=== PATIENT | male | born 1985 | race Caucasian/White ===

== ENCOUNTER 2017-12-05 13:26 | Inpatient (IN) | payer MEDICAID, OTHER ==
[2017-12-05 14:22] LABS: Amphetamine Screen,Urine Not Detected (NotDetected); Barbiturate Screen,Urine Not Detected (NotDetected); Benzodiazepines Screen,Urine Not Detected (NotDetected); Cocaine Screen,Urine Not Detected (NotDetected); Methadone Screen, Urine Not Detected (NotDetected); Opiate Screen,Urine Not Detected (NotDetected); Oxycodone Screen, Urine Not Detected (NotDetected); Phencyclidine Screen,Urine Not Detected (NotDetected); Tricyclic Antidepressant,Urine Not Detected (NotDetected); Urn Cannabinoid Scrn Not Detected (NotDetected)
--- NOTE | 2017-12-05 15:28 | ED ---
General Adult HPI - General Chief complaint: Psychiatric Symptoms Stated complaint: suicidal Time Seen by Provider: 12/05/17 13:30 Source: patient, RN notes reviewed, old records reviewed Mode of arrival: EMS Limitations: no limitations - History of Present Illness Initial comments: This is a 30-year-old male the ER for psychiatric evaluation. Patient with severe depression, wanting to jump off bridge. Patient denies drugs or alcohol today. - Related Data Home Medications Medication Instructions Recorded Confirmed ARIPiprazole [Abilify] 10 mg PO HS 12/05/17 12/05/17 Beclomethasone Dipropionate [Qvar 2 puff INHALATION RT-BID 12/05/17 12/05/17 40 mcg] Cholecalciferol [Vitamin D3] 5,000 unit PO DAILY 12/05/17 12/05/17 Cyanocobalamin (Vitamin B-12) 1,000 mcg PO DAILY 12/05/17 12/05/17 [Vitamin B-12] Cyanocobalamin [Vitamin B-12 1,000 mcg SQ ONCE 12/05/17 12/05/17 Injection] Ipratropium/Albuterol Sulfate 1 puff INHALATION RT-QID 12/05/17 12/05/17 [Combivent Respimat Inhaler] Lisinopril [Zestril] 10 mg PO DAILY 12/05/17 12/05/17 Metoprolol Succinate (ER) [Toprol 25 mg PO DAILY 12/05/17 12/05/17 Xl] Simvastatin [Zocor] 20 mg PO HS 12/05/17 12/05/17 Vortioxetine Hydrobromide 20 mg PO HS 12/05/17 12/05/17 [Trintellix] amLODIPine [Norvasc] 10 mg PO DAILY 12/05/17 12/05/17 lamoTRIgine [LaMICtal] 200 mg PO DAILY 12/05/17 12/05/17 Allergies Allergy/AdvReac Type Severity Reaction Status Date / Time lactose AdvReac Nausea & Verified 12/05/17 14:15 Vomiting Review of Systems ROS Statement: Those systems with pertinent positive or pertinent negative responses have been documented in the HPI. ROS Other: All systems not noted in ROS Statement are negative. Past Medical History Past Medical History: COPD, Hyperlipidemia, Hypertension Additional Past Medical History / Comment(s): alcohol syndrome. History of Any Multi-Drug Resistant Organisms: None Reported Additional Past Surgical History / Comment(s): RIGHT KNEE ACL, PCL. Past Anesthesia/Blood Transfusion Reactions: No Reported Reaction Past Psychological History: ADD/ADHD, Anxiety, Depression Smoking Status: Never smoker Past Alcohol Use History: Heavy Past Drug Use History: Heroin, Marijuana - Past Family History Mother Family Medical History: Unable to Obtain, Myocardial Infarction ([place]), Seizure Disorder Additional Family Medical History / Comment(s): Pt. reports she at the age of 35 years of age. Father Family Medical History: Unable to Obtain Additional Family Medical History / Comment(s): Pt. states that his father is also and he is unsure of hx. Pt. uncertain of the age of his father when he . General Exam Limitations: no limitations General appearance: alert, in no apparent distress Head exam: Present: atraumatic, normocephalic, normal inspection Eye exam: Present: normal appearance, PERRL, EOMI. Absent: scleral icterus, conjunctival injection, periorbital swelling ENT exam: Present: normal exam, mucous membranes moist Neck exam: Present: normal inspection. Absent: tenderness, meningismus, lymphadenopathy Respiratory exam: Present: normal lung sounds bilaterally. Absent: respiratory distress, wheezes, rales, rhonchi, stridor Cardiovascular Exam: Present: regular rate, normal rhythm, normal heart sounds. Absent: systolic murmur, diastolic murmur, rubs, gallop, clicks GI/Abdominal exam: Present: soft, normal bowel sounds. Absent: distended, tenderness, guarding, rebound, rigid Extremities exam: Present: normal inspection, full ROM, normal capillary refill. Absent: tenderness, pedal edema, joint swelling, calf tenderness Back exam: Present: normal inspection Neurological exam: Present: alert, oriented X3, CN II-XII intact Psychiatric exam: Present: normal affect, normal mood Skin exam: Present: warm, dry, intact, normal color. Absent: rash Course Vital Signs 12/05/17 12/05/17 13:31 16:37 Temperature 98.3 F 97.7 F Pulse Rate 88 93 Respiratory 20 20 Rate Blood Pressure 155/65 160/63 O2 Sat by Pulse 88 L 95 Oximetry - Reevaluation(s) Reevaluation #1: 12/05/17 15:28 Medically clear for psychiatric evaluation Medical Decision Making - Medical Decision Making 32 male seen evaluated with psychiatry, patient will be admitted for psychiatric evaluation and treatment - Lab Data Lab Results 12/05/17 Range/Units 13:40 Urine Opiates Screen Not Detected (NotDetected) Ur Oxycodone Screen Not Detected (NotDetected) Urine Methadone Screen Not Detected (NotDetected) Ur Propoxyphene Screen Not Detected (NotDetected) Ur Barbiturates Screen Not Detected (NotDetected) U Tricyclic Antidepress Not Detected (NotDetected) Ur Phencyclidine Scrn Not Detected (NotDetected) Ur Amphetamines Screen Not Detected (NotDetected) U Methamphetamines Scrn Not Detected (NotDetected) U Benzodiazepines Scrn Not Detected (NotDetected) Urine Cocaine Screen Not Detected (NotDetected) U Marijuana (THC) Screen Not Detected (NotDetected) Disposition Clinical Impression: Acute anxiety, Suicidal ideation, Depression, Attempted suicide Disposition: TRANSFER TO PSYCH HOSP/UNIT Condition: Fair Referrals: None,Stated [Primary Care Provider] - 1-2 days
[2017-12-05] MEDS ORDERED: MAGNESIUM HYDROXIDE 2,400 MG/10 ML CUP PO PRN (22:30)
[2017-12-05] MEDS ORDERED: MAG HYDROX/AL HYDROX/SIMETH 30 ML CUP PO PRN (22:30)
[2017-12-05] MEDS ORDERED: ACETAMINOPHEN TAB 325 MG TAB PO PRN (22:30)
[2017-12-06 01:46] VITALS: BMI 56.4
[2017-12-06] MEDS ORDERED: LISINOPRIL 10 MG TAB PO SCH (09:00)
[2017-12-06] MEDS ORDERED: amLODIPine 10 MG TAB PO SCH (09:00)
[2017-12-06] MEDS: IPRATROPIUM-ALBUTEROL 3 ML NEB INHALATION SCH ×4 (09:11→21:02)
[2017-12-06 09:43] LABS: Basophils # (A) 0.1 k/uL (0-0.2); Basophils % (A) 1 %; Eosinophils # (A) 0.2 k/uL (0-0.7); Eosinophils % (A) 1 %; HCT 45.9 % (39.0-53.0); HGB 15.4 gm/dL (13.0-17.5); Lymphocytes # (A) 2.4 k/uL (1.0-4.8); Lymphocytes % (A) 18 %; MCH 30.6 pg (25.0-35.0); MCHC 33.5 g/dL (31.0-37.0); MCV 91.2 fL (80.0-100.0); Mean Platelet Volume 7.1; Monocytes # (A) 0.8 k/uL (0-1.0); Monocytes % (A) 6 %; Neutrophils % (A) 73 %; Platelet Count 334 k/uL (150-450); RBC 5.03 m/uL (4.30-5.90); RDW 13.1 % (11.5-15.5); WBC 13.6 k/uL (3.8-10.6)
[2017-12-06] MEDS: METOPROLOL SUCCINATE (ER) 25 MG TAB.ER.24H PO SCH (09:52)
[2017-12-06] MEDS: lamoTRIgine 100 MG TAB PO SCH (09:53)
[2017-12-06 10:04] LABS: ALT 31 U/L (21-72); AST 28 U/L (17-59); Albumin 3.8 g/dL (3.5-5.0); Alkaline Phosphatase 104 U/L (38-126); Anion Gap 13 mmol/L; Blood Urea Nitrogen 12 mg/dL (9-20); Calcium 9.5 mg/dL (8.4-10.2); Carbon Dioxide 26 mmol/L (22-30); Chloride 102 mmol/L (98-107); Cholesterol 213 mg/dL (<200); Glucose 107 mg/dL (74-99); HDL Cholesterol 43 mg/dL (40-60); LDL Cholesterol,Calculated 128 mg/dL (0-99); Potassium 4.4 mmol/L (3.5-5.1); Sodium 141 mmol/L (137-145); Total Bilirubin 0.5 mg/dL (0.2-1.3); Total Protein 6.8 g/dL (6.3-8.2); Triglycerides 212 mg/dL (<150)
[2017-12-06 13:10] LABS: Appearance,Urine Clear (Clear); Bilirubin,Urine Negative (Negative); Blood,Urine Negative (Negative); Color,Urine Light Yellow; Glucose,Urine (UA) Negative (Negative); Ketones,Urine Negative (Negative); Leukocyte Esterase,Urine Negative (Negative); Nitrite,Urine Negative (Negative); PH, Urine 5.5 (5.0-8.0); Protein,Urine Negative (Negative); Urobilinogen,Urine <2.0 mg/dL (<2.0)
[2017-12-06] MEDS: CYANOCOBALAMIN 500 MCG TAB PO SCH (13:23)
[2017-12-06] MEDS: CHOLECALCIFEROL 1,000 UNIT TAB PO SCH (13:24)
[2017-12-06] MEDS: NYSTATIN 100,000 UNIT/GM POWD 15 GM TOPICAL SCH ×2 (13:25→21:33)
[2017-12-06] MEDS ORDERED: ALBUTEROL NEBULIZED 2.5 MG/3 ML INHALATION PRN (14:47)
--- NOTE | 2017-12-06 15:04 | P.HPMEDMHU ---
History of Present Illness H&P Date: 12/06/17 Chief Complaint: COPD Patient is a 32-year-old male with a history of morbid obesity, hypertension, COPD, dyslipidemia, and alcohol syndrome who presented to the emergency department with complaints of suicidal ideation. In the ER he underwent evaluation. He was admitted to the mental health unit. Laboratory analysis showed a slightly elevated white blood cell count. Patient seen and examined. He states that he had nasal congestion about 2 weeks ago but this has gotten better. He also complains of pain in his knee and back he states they're secondary to prior surgery and a pinched nerve. He is asking for pain medications. He also admits to having a rash in his groin that started a few days ago. He denies any chest pain, shortness of breath, nausea, vomiting, diarrhea, or constipation. He denies depression and suicidal ideation to me but states he is here because he started hearing voices and was listening to them. He states that he became homeless 2 days ago. He had not been taking his medications consistently prior to this. Review of Systems Pertinent positives and negatives as per HPI remainder 12 point review of systems is negative. Past Medical History Past Medical History: COPD, Hyperlipidemia, Hypertension Additional Past Medical History / Comment(s): alcohol syndrome. Neuropathy. "Pinched nerve in back" History of Any Multi-Drug Resistant Organisms: None Reported Additional Past Surgical History / Comment(s): RIGHT KNEE ACL, PCL. Surgery for fracture right knee Past Anesthesia/Blood Transfusion Reactions: No Reported Reaction Smoking Status: Never smoker - Past Family History Mother Family Medical History: Myocardial Infarction ([place]), Seizure Disorder Additional Family Medical History / Comment(s): Pt. reports she at the age of 35 years of age. Father Additional Family Medical History / Comment(s): Pt. states that his father is also and he is unsure of hx. Pt. uncertain of the age of his father when he . Medications and Allergies Home Medications Medication Instructions Recorded Confirmed Type ARIPiprazole [Abilify] 10 mg PO HS 12/05/17 12/06/17 History Beclomethasone Dipropionate [Qvar 2 puff INHALATION RT-BID 12/05/17 12/06/17 History 40 mcg] Cholecalciferol [Vitamin D3] 5,000 unit PO DAILY 12/05/17 12/06/17 History Cyanocobalamin (Vitamin B-12) 1,000 mcg PO DAILY 12/05/17 12/06/17 History [Vitamin B-12] Cyanocobalamin [Vitamin B-12 1,000 mcg SQ ONCE 12/05/17 12/06/17 History Injection] Ipratropium/Albuterol Sulfate 1 puff INHALATION RT-QID 12/05/17 12/06/17 History [Combivent Respimat Inhaler] Lisinopril [Zestril] 10 mg PO DAILY 12/05/17 12/06/17 History Metoprolol Succinate (ER) [Toprol 25 mg PO DAILY 12/05/17 12/06/17 History Xl] Simvastatin [Zocor] 20 mg PO HS 12/05/17 12/06/17 History Vortioxetine Hydrobromide 20 mg PO HS 12/05/17 12/06/17 History [Trintellix] amLODIPine [Norvasc] 10 mg PO DAILY 12/05/17 12/06/17 History lamoTRIgine [LaMICtal] 200 mg PO DAILY 12/05/17 12/06/17 History Allergies Allergy/AdvReac Type Severity Reaction Status Date / Time lactose AdvReac Nausea & Verified 12/06/17 01:21 Vomiting Physical Exam Osteopathic Statement: *. No significant issues noted on an osteopathic structural exam other than those noted in the History and Physical/Consult. Vitals: Vital Signs Temp Pulse Pulse Resp BP BP Pulse Ox 12/06/17 07:25 97.7 F 88 16 146/63 12/06/17 01:38 98.0 F 99 17 137/92 12/05/17 20:15 97.6 F 86 20 166/72 95 12/05/17 16:37 97.7 F 93 20 160/63 95 12/05/17 13:31 98.3 F 88 20 155/65 88 L Intake and Output 12/05/17 12/06/17 12/06/17 22:59 06:59 14:59 Other: Weight 153.8 kg General: non toxic, no distress, appears at stated age, obese Derm: Erythema with excoriation, small papules, no scale or crust in the right groin fold no unusual ecchymoses, warm, dry Head: atraumatic, normocephalic, symmetric Eyes: EOMI, no lid lag, anicteric sclera, pupils equal round reactive to light ENT: Nose and ears atraumatic, no thrush, no pharyngeal erythema Neck: No thyromegaly, no cervical lymphadenopathy, trachea midline, supple Mouth: no lip lesion, mucus membranes moist Cardiovascular: S1S2 reg, no murmur, positive posterior tibial pulse bilateral, no edema, capillary refill less than 2 seconds Lungs: CTA bilateral, no rhonchi, no rales , no accessory muscle use Abdominal: soft, nontender to palpation, no guarding, no appreciable organomegaly, normal bowel sounds Ext: no gross muscle atrophy, muscle strength 5 out of 5 in all 4 extremities grossly, no contractures, Neuro: CN II-XI grossly intact, light touch intact all 4 extremities, finger to nose within normal limits, Psych: Alert, oriented, flat affect Cranial Nerve Examination - Cranial Nerves Cranial Nerve II- Optic: Intact Cranial Nerve III- Oculomotor: Intact Cranial Nerve IV- Trochlear: Intact Cranial Nerve V- Trigeminal: Intact Cranial Nerve - Abducens: Intact Cranial Nerve VII- Facial: Intact Cranial Nerve VIII- Auditory: Intact Cranial Nerve IX- Glossopharyngeal: Intact Cranial Nerve X- Vagus: Intact Cranial Nerve XI- Accessory: Intact Cranial Nerve XII- Hypoglossal: Intact Results CBC & Chem 7: 12/06/17 08:59 12/06/17 08:59 Labs: Abnormal Lab Results - Last 24 Hours (Table) 12/06/17 12/06/17 Range/Units 08:59 08:59 WBC 13.6 H (3.8-10.6) k/uL Neutrophils # 10.0 H (1.3-7.7) k/uL Glucose 107 H (74-99) mg/dL Triglycerides 212 H (<150) mg/dL Cholesterol 213 H (<200) mg/dL LDL Cholesterol, Calc 128 H (0-99) mg/dL Thrombosis Risk Factor Assmnt - DVT/VTE Prophylaxis DVT/VTE Prophylaxis: Low risk, early ambulation encouraged - Choose All That Apply Each Factor Represents 1 point: Obesity (BMI >25) Thrombosis Risk Factor Assessment Total Risk Factor Score: 1 Thrombosis Risk Factor Assessment Level: Low Risk Assessment and Plan Assessment: Dyslipidemia -Plan on transitioning back to simvastatin an outpatient basis as patient has not been compliant with this medication - needs to follow-up with primary care provider in 3-6 months for repeat cholesterol profile Senia infection of pannus -Improved hygiene -Nystatin powder twice a day Morbid obesity with BMI 56.4 -Structured outpatient weight loss COPD without exacerbation -Continue home inhaler regiment -When necessary albuterol Hypertension, accelerated on arrival -Likely secondary to noncompliance -at home on lisinopril, metoprolol, and Norvasc-none of these 3 medications are at maximal doses, due to his social stressors we'll attempt to decrease medications. We'll discontinue Norvasc and increase lisinopril dose. Could also consider coming off metoprolol in the future if blood pressure is adequately controlled on regimen of lisinopril and metoprolol. Tobacco abuse -Cessation -Nicotine replacement Neuropathy -Start Neurontin Leukocytosis -Undetermined etiology -Patient is not having any current symptoms - repeat in AM Reported hallucinations -Your psych management Thank you for allowing us to participate in the care of this patient. We will follow peripherally. Do not hesitate to contact us with questions. Someone can be reached from the [facility] hospitalist group at all hours of the day at [phone].
[2017-12-06] MEDS: GABAPENTIN 100 MG CAP PO SCH ×2 (16:01→21:33)
[2017-12-06 18:35] LABS: Hemoglobin A1C 5.4 % (4.0-6.0)
[2017-12-06] MEDS ORDERED: ARIPiprazole 10 MG TAB PO SCH (21:00)
[2017-12-06] MEDS: ATORVASTATIN 10 MG TAB PO SCH (21:17)
[2017-12-07] MEDS: NON-FORMULARY DRUG (Vortioxetine Hydrobromide [Trintellix] 20 MG) PO SCH ×2 (01:02→22:45)
[2017-12-07 08:50] LABS: HGB 14.5 gm/dL (13.0-17.5); MCH 30.3 pg (25.0-35.0); MCHC 32.9 g/dL (31.0-37.0); Mean Platelet Volume 7.2; Platelet Count 326 k/uL (150-450); RBC 4.79 m/uL (4.30-5.90); RDW 13.2 % (11.5-15.5); WBC 15.6 k/uL (3.8-10.6)
[2017-12-07] MEDS: IPRATROPIUM-ALBUTEROL 3 ML NEB INHALATION SCH ×4 (09:07→21:09)
[2017-12-07] MEDS: LISINOPRIL 10 MG TAB PO SCH (09:19)
[2017-12-07] MEDS: METOPROLOL SUCCINATE (ER) 25 MG TAB.ER.24H PO SCH (09:20)
[2017-12-07] MEDS: NYSTATIN 100,000 UNIT/GM POWD 15 GM TOPICAL SCH ×2 (09:22→20:55)
[2017-12-07] MEDS: GABAPENTIN 100 MG CAP PO SCH ×3 (09:23→20:56)
[2017-12-07] MEDS: lamoTRIgine 100 MG TAB PO SCH (09:23)
[2017-12-07] MEDS: SERTRALINE 25 MG TAB PO SCH (09:23)
[2017-12-07] MEDS: NICOTINE 21MG/24HR PATCH TRANSDERM SCH (11:10)
[2017-12-07 11:35] LABS: Urine Alcohol Negative (Negative); Urine Barbiturate Negative (Negative); Urine Cocaine Negative (Negative); Urine Methadone Negative (Negative); Urine Opiates Negative (Negative); Urine Phencyclidine Negative (Negative)
[2017-12-07] MEDS: CYANOCOBALAMIN 500 MCG TAB PO SCH (13:05)
[2017-12-07] MEDS: CHOLECALCIFEROL 1,000 UNIT TAB PO SCH (13:06)
--- NOTE | 2017-12-07 13:38 | P.HP ---
Psychiatric H&P - . History & Physical: Allergies Allergy/AdvReac Type Severity Reaction Status Date / Time lactose AdvReac Nausea & Verified 12/06/17 01:21 Vomiting Vital Signs Temp 97.7 F 12/06/17 07:25 Pulse 78 12/06/17 14:01 Resp 16 12/06/17 07:25 BP 146/63 12/06/17 07:25 Pulse Ox 95 12/05/17 20:15 Intake & Output 12/05/17 12/06/17 12/06/17 18:59 06:59 18:59 Weight 154.675 kg 153.8 kg Laboratory Last Values WBC 13.6 k/uL (3.8-10.6) H 12/06/17 08:59 RBC 5.03 m/uL (4.30-5.90) 12/06/17 08:59 Hgb 15.4 gm/dL (13.0-17.5) 12/06/17 08:59 Hct 45.9 % (39.0-53.0) 12/06/17 08:59 MCV 91.2 fL (80.0-100.0) 12/06/17 08:59 MCH 30.6 pg (25.0-35.0) 12/06/17 08:59 MCHC 33.5 g/dL (31.0-37.0) 12/06/17 08:59 RDW 13.1 % (11.5-15.5) 12/06/17 08:59 Plt Count 334 k/uL (150-450) 12/06/17 08:59 Neutrophils % 73 % 12/06/17 08:59 Lymphocytes % 18 % 12/06/17 08:59 Monocytes % 6 % 12/06/17 08:59 Eosinophils % 1 % 12/06/17 08:59 Basophils % 1 % 12/06/17 08:59 Neutrophils # 10.0 k/uL (1.3-7.7) H 12/06/17 08:59 Lymphocytes # 2.4 k/uL (1.0-4.8) 12/06/17 08:59 Monocytes # 0.8 k/uL (0-1.0) 12/06/17 08:59 Eosinophils # 0.2 k/uL (0-0.7) 12/06/17 08:59 Basophils # 0.1 k/uL (0-0.2) 12/06/17 08:59 Sodium 141 mmol/L (137-145) 12/06/17 08:59 Potassium 4.4 mmol/L (3.5-5.1) 12/06/17 08:59 Chloride 102 mmol/L (98-107) 12/06/17 08:59 Carbon Dioxide 26 mmol/L (22-30) 12/06/17 08:59 Anion Gap 13 mmol/L 12/06/17 08:59 BUN 12 mg/dL (9-20) 12/06/17 08:59 Creatinine 0.80 mg/dL (0.66-1.25) 12/06/17 08:59 Est GFR (CKD-EPI)AfAm >90 (>60 ml/min/1.73 sqM) 12/06/17 08:59 Est GFR (CKD-EPI)NonAf >90 (>60 ml/min/1.73 sqM) 12/06/17 08:59 Glucose 107 mg/dL (74-99) H 12/06/17 08:59 Calcium 9.5 mg/dL (8.4-10.2) 12/06/17 08:59 Total Bilirubin 0.5 mg/dL (0.2-1.3) 12/06/17 08:59 AST 28 U/L (17-59) 12/06/17 08:59 ALT 31 U/L (21-72) 12/06/17 08:59 Alkaline Phosphatase 104 U/L (38-126) 12/06/17 08:59 Total Protein 6.8 g/dL (6.3-8.2) 12/06/17 08:59 Albumin 3.8 g/dL (3.5-5.0) 12/06/17 08:59 Triglycerides 212 mg/dL (<150) H 12/06/17 08:59 Cholesterol 213 mg/dL (<200) H 12/06/17 08:59 LDL Cholesterol, Calc 128 mg/dL (0-99) H 12/06/17 08:59 HDL Cholesterol 43 mg/dL (40-60) 12/06/17 08:59 TSH 2.610 mIU/L (0.465-4.680) 12/06/17 08:59 Urine Color Light Yellow 12/06/17 12:55 Urine Appearance Clear (Clear) 12/06/17 12:55 Urine pH 5.5 (5.0-8.0) 12/06/17 12:55 Ur Specific [place] 1.010 (1.001-1.035) 12/06/17 12:55 Urine Protein Negative (Negative) 12/06/17 12:55 Urine Glucose (UA) Negative (Negative) 12/06/17 12:55 Urine Ketones Negative (Negative) 12/06/17 12:55 Urine Blood Negative (Negative) 12/06/17 12:55 Urine Nitrite Negative (Negative) 12/06/17 12:55 Urine Bilirubin Negative (Negative) 12/06/17 12:55 Urine Urobilinogen <2.0 mg/dL (<2.0) 12/06/17 12:55 Ur Leukocyte Esterase Negative (Negative) 12/06/17 12:55 Urine Opiates Screen Not Detected (NotDetected) 12/05/17 13:40 Ur Oxycodone Screen Not Detected (NotDetected) 12/05/17 13:40 Urine Methadone Screen Not Detected (NotDetected) 12/05/17 13:40 Ur Propoxyphene Screen Not Detected (NotDetected) 12/05/17 13:40 Ur Barbiturates Screen Not Detected (NotDetected) 12/05/17 13:40 U Tricyclic Antidepress Not Detected (NotDetected) 12/05/17 13:40 Ur Phencyclidine Scrn Not Detected (NotDetected) 12/05/17 13:40 Ur Amphetamines Screen Not Detected (NotDetected) 12/05/17 13:40 U Methamphetamines Scrn Not Detected (NotDetected) 12/05/17 13:40 U Benzodiazepines Scrn Not Detected (NotDetected) 12/05/17 13:40 Urine Cocaine Screen Not Detected (NotDetected) 12/05/17 13:40 U Marijuana (THC) Screen Not Detected (NotDetected) 12/05/17 13:40 Identifying Information Patient is 32 year old male. He is single, no children He is homeless and unemployed. He gets SSI. Chief complaint People on the Sai are telling me lies about certain things. History of presenting illness Patient reports he has been on an sai called impath connection over the past two years. He says this sai is on [employer]. He Says people on the sai told him to move out of his current place, which he did and became homeless as a result. He says he has no where else to go currently. He also says people on the sai are telling him to go see people like obama, president anyi, patients payee by name Kilo acosta. He reports feeling sad about being homeless. He says he is afraid that no one can help him with his sai problems. He reports feeling safer in the hospital than outside. He complains of mood swings since 2007. He reports being prescribed lamictal 200mg , abilify 10mg and trintellix by the [facility]. He claims voices had told him stop taking his medications and therefore he reports to have stopped taking them one week before his current admission. He presented to the ER with complaints of auditory halluciantions telling him to go infront of a moving vehicle. He denies current suicidal or homicidal ideations saying that he feels safe in the hospital. He reports poor sleep, hopelessness and amotivated. Past psychiatric treatment history Patient reports being started on psychiatric medications following his first psychaitric hospitalization two years ago. He reports eight psychiatric hospitalizations over the past two years. He says his last hospitalization was in september of 2016. He says most of his hospitalizations are due to suicidal ideations, hearing voices and feeling stressed. He reports history of cutting self and burning self. He claims to have laid in the middle of street two years ago. Substance use history Started smoking marijuana around the age of 18. He reports smoking half bowl of marijuana once a week. He claims his last use was in may 2017. Reports alcohol use from the age of 21. He reports drinking five beers every weekend. he says his last drink was november. He denies rehab treatment history. Denies use of other illicit drugs Legal history Registered sex offender. Medical history History of Hypertension, hypercholesterimia, ACL and PCL injury of the right knee, neuropathy, pinched nerve in the back and back pain. Family history Not known. He says he doesn't know Social history Reports being born in [place], [place]. He says his mother was a heroin addict and his father had left them. He says he was [age] years old when Christina and Chris Khoury took gaurdianship of him. He reports happy childhood. Denies history of abuse. He says he has no siblings. He reports to have completed 11th grade. He obtained his GED in 2008. He reports to have worked in [employer] in the [employer] departments. He says his last job was in 2004. He is currently on disability income. He is not and has no children. Mental staus exam Patient is 32 year old male. He is morbidly Obese with marginal grooming and hygeine. He maintains good eye contact. No psychomotor agitation or retardation noted. His speech and thought process are goal directed. His mood is reported as sad and affect constricted. Reports auditory halluciantions. No visual halluciantions. He denies paranoia. He denies current suicidal or homicidal ideations. He is alert and oriented to time, place and person. Insight and judgment are poor. Assessment Schizoaffective disorder depressed type Alcohol use moderate type Cannabis use moderate type Plan Patient was admitted voluntarily to inpatient mental health unit through ER. Continue Lamictal 200mg po qday, abilify 10mg po qday. Trintillex is non formulary. Will start him on zoloft 25mg po qday and dose will be adjusted as he tolerates along with responsiveness. Encourage participation in unit activities and group therapies. History and physical exam by the mutton puncher. Routine labs, comprehensive metabolic panel, CBC with diff, UDS, Urinalysis Individualized treatment plan development and discharge planning. Monitor symptoms and progress. 12/07/17 13:06
--- NOTE | 2017-12-07 19:54 | P.PN ---
Progress Note - Text Progress Note Date: 12/07/17 Patient was seen today. He continues to report hearing voices. He says he is angry at himself for listening to the voices. He reports feeling sad. He reports he is alone in this struggle which makes him feel very sad. He reports going only to some groups. Mental status exam Patient is 32 year old male. He is morbidly Obese with marginal grooming and hygeine. He maintains good eye contact. No psychomotor agitation or retardation noted. His speech and thought process are goal directed. His mood is reported as sad and affect constricted. Reports auditory halluciantions. No visual halluciantions. He denies paranoia. He denies current suicidal or homicidal ideations. He is alert and oriented to time, place and person. Insight and judgment are poor. Assessment He still complains of auditory hallucinations and depression. Plan Continue Lamictal 200mg po qday. Will increase the dose of abilify to 15mg po qday. Continue zoloft 25mg po qday and dose will be adjusted as he tolerates along with responsiveness. Encourage participation in unit activities and group therapies. Monitor symptoms and progress.
[2017-12-07] MEDS ORDERED: ARIPiprazole 15 MG TAB PO SCH (19:56)
[2017-12-07] MEDS: ATORVASTATIN 10 MG TAB PO SCH (20:56)
[2017-12-08] MEDS: NYSTATIN 100,000 UNIT/GM POWD 15 GM TOPICAL SCH ×2 (08:42→21:10)
[2017-12-08] MEDS: METOPROLOL SUCCINATE (ER) 25 MG TAB.ER.24H PO SCH (08:44)
[2017-12-08] MEDS: LISINOPRIL 10 MG TAB PO SCH (08:44)
[2017-12-08] MEDS: GABAPENTIN 100 MG CAP PO SCH ×3 (08:46→20:49)
[2017-12-08] MEDS: lamoTRIgine 100 MG TAB PO SCH (08:46)
[2017-12-08] MEDS: NICOTINE 21MG/24HR PATCH TRANSDERM SCH (08:46)
[2017-12-08] MEDS: SERTRALINE 25 MG TAB PO SCH (08:46)
[2017-12-08] MEDS: IPRATROPIUM-ALBUTEROL 3 ML NEB INHALATION SCH ×4 (09:21→21:34)
[2017-12-08] MEDS: BECLOMETHASONE DIP 80 MCG/PUFF INHALER INHALATION SCH ×3 (09:30→21:34)
[2017-12-08] MEDS: CHOLECALCIFEROL 1,000 UNIT TAB PO SCH (12:22)
[2017-12-08] MEDS: CYANOCOBALAMIN 500 MCG TAB PO SCH (12:23)
--- NOTE | 2017-12-08 12:25 | P.PN ---
Progress Note - Text Progress Note Date: 12/08/17 Patient was seen for a follow-up examination. He usually stays by himself either rests or sleeps. He says he is feeling sleepy. He said he slept well last night but still feels sleepy. He reports the history of mood changes lasting for last than an hour. He said Abilify and Lamictal are not helping him. Patient said he was living in a longterm for sexual offenders. He left there because of "bedbugs"and went to [facility]. He did not a different and was evicted the next day. That is when he called somebody and reported that he is suicidal and was brought in to the hospital for admission. He said he cannot go back to the group house because of the bedbugs and he had left that place. Now he wants to stay here at least for 2 weeks. He continues to say that he has suicidal thoughts, hears voices which talk between themselves and tell him to do certain things. This is an obese ambulatory white male with adequate hygiene. He is polite and cooperative. He does not show any psychomotor agitation or retardation. His speech is spontaneous but does not make much sense. This could be part of his psychosis or manipulative behavior. His mood is euthymic and affect is appropriate to the thought content. He continues to say that he is suicidal, hears voices and of paranoid thinking. He is well oriented, has adequate concentration etc. Assessment: He has several diagnoses in the chart including psychotic disorder NOS, bipolar disorder, schizoaffective disorder alcohol use disorder cannabis use disorder etc. His drug screening is negative for any of the drugs of abuse. Patient's history is unreliable which could be part of his intellectual deficits, psychosis or manipulative behavior. Plan: Change Abilify to risperidone 2 mg twice a day and consider Risperdal Consta if he does not have any adverse effects. Discontinue Vortioxetine since it is not recommended for a person with history of mood changes and is also nonformulary. Continue groups and other therapies.
[2017-12-08] MEDS: ATORVASTATIN 10 MG TAB PO SCH (20:49)
[2017-12-08] MEDS: risperiDONE 2 MG TAB PO SCH (20:50)
[2017-12-09] MEDS: BECLOMETHASONE DIP 80 MCG/PUFF INHALER INHALATION SCH ×3 (02:59→18:55)
[2017-12-09] MEDS: NICOTINE 21MG/24HR PATCH TRANSDERM SCH (08:59)
[2017-12-09] MEDS: risperiDONE 2 MG TAB PO SCH ×2 (09:02→20:38)
[2017-12-09] MEDS: GABAPENTIN 100 MG CAP PO SCH ×3 (09:02→20:38)
[2017-12-09] MEDS: lamoTRIgine 100 MG TAB PO SCH (09:02)
[2017-12-09] MEDS: IPRATROPIUM-ALBUTEROL 3 ML NEB INHALATION SCH ×4 (09:22→18:47)
[2017-12-09] MEDS: NYSTATIN 100,000 UNIT/GM POWD 15 GM TOPICAL SCH ×2 (09:33→20:38)
[2017-12-09] MEDS: METOPROLOL SUCCINATE (ER) 25 MG TAB.ER.24H PO SCH ×2 (09:33→12:00)
[2017-12-09] MEDS: LISINOPRIL 10 MG TAB PO SCH ×2 (09:33→12:00)
--- NOTE | 2017-12-09 10:28 | P.PN ---
Progress Note - Text Progress Note Date: 12/09/17 Patient was seen for routine follow-up examination. He continues to stay by himself and does not socialize or attending groups. He was advised strongly to attend groups and not to stay in the room all the time. He continues to report of hearing voices and having occasional suicidal thoughts without any intent to act on those thoughts. He takes his medications and does not have any adverse effects. This is an obese ambulatory white male with fair hygiene. He is polite and cooperative. He does not show any psychomotor agitation or retardation. His speech is spontaneous and goal-directed his mood is dull to euthymic and affect is appropriate. He reports of hearing voices and getting paranoid. He reports of having suicidal thoughts at times but he denies any plan to hurt himself. He denies homicidal thoughts. He is oriented with adequate memory concentration etc. Plan: Continue risperidone 2 mg twice a day, Neurontin 100 mg 3 times a day, groups and other therapies.
[2017-12-09] MEDS: CHOLECALCIFEROL 1,000 UNIT TAB PO SCH (12:00)
[2017-12-09] MEDS: CYANOCOBALAMIN 500 MCG TAB PO SCH (12:01)
[2017-12-09] MEDS: ATORVASTATIN 10 MG TAB PO SCH (20:38)
[2017-12-10 02:55] VITALS: BP 133/76; RESP 12; TEMP 97.5
[2017-12-10] MEDS: IPRATROPIUM-ALBUTEROL 3 ML NEB INHALATION SCH ×2 (08:45→12:11)
[2017-12-10] MEDS: BECLOMETHASONE DIP 80 MCG/PUFF INHALER INHALATION SCH (08:45)
[2017-12-10] MEDS: lamoTRIgine 100 MG TAB PO SCH (08:56)
[2017-12-10] MEDS: GABAPENTIN 100 MG CAP PO SCH (08:56)
[2017-12-10] MEDS: LISINOPRIL 10 MG TAB PO SCH (08:57)
[2017-12-10] MEDS: METOPROLOL SUCCINATE (ER) 25 MG TAB.ER.24H PO SCH (08:58)
[2017-12-10] MEDS: NICOTINE 21MG/24HR PATCH TRANSDERM SCH (08:59)
[2017-12-10] MEDS: risperiDONE 2 MG TAB PO SCH (09:01)
[2017-12-10] MEDS: NYSTATIN 100,000 UNIT/GM POWD 15 GM TOPICAL SCH (09:01)
--- NOTE | 2017-12-10 10:21 | P.PN ---
Progress Note - Text Progress Note Date: 12/10/17 Patient was seen for a follow-up examination. He is up and about and is attending groups today. He said he feels better, he is not having any suicide thoughts, he is not hearing any voices etc. He also denies any adverse effects from medication. This is an obese ambulatory white male with adequate hygiene. He is polite and cooperative. He does not show any psychomotor agitation or retardation. His speech is spontaneous relevant and goal-directed. His mood is euthymic and affect is appropriate. He denies suicidal and homicidal thoughts. He denies hallucinations and delusional thinking. He is well oriented with good memory concentration general knowledge etc. Plan: Continue risperidone 2 mg twice a day, groups and other activities. Discussed with treatment team about discharge plan and possibly placing him on Risperdal Consta.
--- NOTE | 2017-12-10 12:00 | P.DS ---
Providers Date of admission: 12/05/17 20:08 Expected date of discharge: 12/10/17 Attending physician: Ana Gomez Consults: 12/05/17 22:42 Consult Physician Routine Consulting Provider: Franklin Tran Consult Reason/Comments: medical management Do you want consulting provider notified?: Already Contacted Primary care physician: Stated None Hospital Course: Patient had his physical examination psychiatric evaluation and psychosocial evaluation. After psychiatric examination the weekend psychiatrist continued Lamictal Abilify and changed Trentillex to Zoloft 25 mg a day. When I saw him on 12-08-17 I continued his Lamictal changed Abilify to risperidone 2 mgd and discontinued his subtherapeutic dose of Zoloft since he was not doing well on Abilify and antidepressants are not recommended for management of bipolar disorder or schizoaffective disorder. Gradually patient improved, his mood became stable, he became free of suicide and homicide thoughts, started to socialize with peers, attend group etc. He also agreed to continue with outpatient treatment. In view of all these it was agreed by the treatment team to discharge him. Patient did not have any adverse effects from change of medications or from Risperdal. Condition on discharge: This is an obese ambulatory white male with adequate hygiene. He does not show any psychomotor agitation or retardation. His speech is spontaneous relevant and goal-directed. His mood is euthymic and affect is appropriate. He denies hallucinations and delusional thinking. He denies suicide and homicide thoughts. He is well oriented with adequate memory concentration etc. His insight and judgment are optimal. Diagnosis on discharge: Schizoaffective disorder bipolar type F 25.0 Alcohol use disorder moderate F 10.20. Cannabis use disorder moderate F 12.20. ALLERGY to lactose. Bronchial asthma. Hyper lipidemia. Hypertension. Vitamin D and B12 deficiency. Chronic pain. Obesity. Patient was advised and agreed to take his medications as prescribed, not to drink alcohol or use drugs, to learn better coping skills through therapy, not to drive or operate missionary if he feels sleepy, call his psychiatrist or therapist if he becomes suicidal and if he cannot get hold of them to go to nearest ER. Plan - Discharge Summary Discharge Rx Participant: No New Discharge Prescriptions: New Atorvastatin [Lipitor] 10 mg PO HS 30 Days #30 tab Gabapentin [Neurontin] 200 mg PO TID 30 Days #90 cap Lisinopril [Zestril] 30 mg PO DAILY 30 Days #30 tab risperiDONE [RisperDAL] 2 mg PO BID 30 Days #60 tab Continue Beclomethasone Dipropionate [Qvar 40 mcg] 2 puff INHALATION RT-BID 30 Days # 3 aer.w.adap Cholecalciferol [Vitamin D3] 5,000 unit PO DAILY 30 Days #30 tab Cyanocobalamin (Vitamin B-12) [Vitamin B-12] 1,000 mcg PO DAILY 30 Days #30 tablet Ipratropium/Albuterol Sulfate [Combivent Respimat Inhaler] 1 puff INHALATION RT-QID 30 Days #3 mist.inhal lamoTRIgine [LaMICtal] 200 mg PO DAILY 30 Days #30 tablet Metoprolol Succinate (ER) [Toprol XL] 25 mg PO DAILY 30 Days #30 tab.er.24h Discontinued Vortioxetine Hydrobromide [Trintellix] 20 mg PO HS Lisinopril [Zestril] 10 mg PO DAILY amLODIPine [Norvasc] 10 mg PO DAILY Simvastatin [Zocor] 20 mg PO HS Cyanocobalamin [Vitamin B-12 Injection] 1,000 mcg SQ ONCE ARIPiprazole [Abilify] 10 mg PO HS Discharge Medication List Atorvastatin [Lipitor] 10 mg PO HS 30 Days #30 tab 12/10/17 [Rx] Beclomethasone Dipropionate [Qvar 40 mcg] 2 puff INHALATION RT-BID 30 Days #3 aer.w.adap 12/10/17 [Rx] Cholecalciferol [Vitamin D3] 5,000 unit PO DAILY 30 Days #30 tab 12/10/17 [Rx] Cyanocobalamin (Vitamin B-12) [Vitamin B-12] 1,000 mcg PO DAILY 30 Days #30 tablet 12/10/17 [Rx] Gabapentin [Neurontin] 200 mg PO TID 30 Days #90 cap 12/10/17 [Rx] Ipratropium/Albuterol Sulfate [Combivent Respimat Inhaler] 1 puff INHALATION RT- QID 30 Days #3 mist.inhal 12/10/17 [Rx] Lisinopril [Zestril] 30 mg PO DAILY 30 Days #30 tab 12/10/17 [Rx] Metoprolol Succinate (ER) [Toprol XL] 25 mg PO DAILY 30 Days #30 tab.er.24h 12/24 [Rx] lamoTRIgine [LaMICtal] 200 mg PO DAILY 30 Days #30 tablet 12/10/17 [Rx] risperiDONE [RisperDAL] 2 mg PO BID 30 Days #60 tab 12/10/17 [Rx] Follow up Appointment(s)/Referral(s): None,Stated [Primary Care Provider] - 1-2 days
[2017-12-10 12:19] VITALS: PULSE 96
[2017-12-10] MEDS: CHOLECALCIFEROL 1,000 UNIT TAB PO SCH (12:33)
[2017-12-10] MEDS: CYANOCOBALAMIN 500 MCG TAB PO SCH (12:33)
[2017-12-10] MEDS ORDERED: GABAPENTIN 100 MG CAP PO SCH (16:00)
== END 2017-12-10 14:00 | disposition home or self-care (01) | DRG 880 ==
LOC: EC 13:26 → 3MHU 20:08
PROVIDERS: ADMIT Psychiatry & Neurology Psychiatry; ATTEND Psychiatry & Neurology Psychiatry
DX: R45.851 Suicidal ideations (principal); E66.01 Morbid (severe) obesity due to excess calories; Z68.43 Body mass index [BMI] 50.0-59.9, adult; F41.9 Anxiety disorder, unspecified; E78.5 Hyperlipidemia, unspecified; F32.9 Major depressive disorder, single episode, unspecified; J44.9 Chronic obstructive pulmonary disease, unspecified; I10 Essential (primary) hypertension; F90.9 Attention-deficit hyperactivity disorder, unspecified type; F12.90 Cannabis use, unspecified, uncomplicated; T43.596A Underdosing of other antipsychotics and neuroleptics, initial encounter; T50.996A Underdosing of other drugs, medicaments and biological substances, initial encounter; T42.6X6A Underdosing of other antiepileptic and sedative-hypnotic drugs, initial encounter; F25.0 Schizoaffective disorder, bipolar type; F25.1 Schizoaffective disorder, depressive type; E55.9 Vitamin D deficiency, unspecified; E53.8 Deficiency of other specified B group vitamins; G89.29 Other chronic pain; Z79.899 Other long term (current) drug therapy; Z82.49 Family history of ischemic heart disease and other diseases of the circulatory system; Z59.0 Homelessness; Z91.5 Personal history of self-harm; Z91.011 Allergy to milk products; Z72.89 Other problems related to lifestyle; Z71.6 Tobacco abuse counseling; Z91.128 Patient's intentional underdosing of medication regimen for other reason; Z82.0 Family history of epilepsy and other diseases of the nervous system
CPT/HCPCS: 80053; 80061; 80306; 81003; 83036; 84443; 85025; 85027; 94640; 99285

== ENCOUNTER 2018-02-27 16:12 | Emergency (ER) | payer OTHER ==
[2018-02-27 16:27] VITALS: BP 136/82; PULSE 75; RESP 20; TEMP 97.8
--- NOTE | 2018-02-27 17:45 | ED ---
Extremity Problem HPI - General Chief complaint: Extremity Problem,Nontraumatic Stated complaint: Leg swelling Sent by PCP Time Seen by Provider: 02/27/18 17:29 Source: patient, RN notes reviewed Mode of arrival: ambulatory Limitations: no limitations - History of Present Illness Initial comments: This is a 32-year-old male who presents to the emergency department with chief complaint of bilateral lower extremity edema. Patient states that he developed bilateral lower extremity edema 3 weeks ago. He states that he first noticed it in his right leg and then later on that day noticed it in his left leg. He states that since that time, he has not noticed any worsening in his symptoms. He states that the extremities are painful. He denies any recent illnesses or infections. Denies history of blood clots or use of blood thinners. Denies recent fevers or chills, chest pain or shortness of breath, abdominal pain, nausea or vomiting, dizziness or headache. - Related Data Home Medications Medication Instructions Recorded Confirmed Albuterol Inhaler [Ventolin Hfa 1 - 2 puff INHALATION RT-Q4H PRN 02/27/18 Inhaler] Furosemide [Lasix] 40 mg PO DAILY 02/27/18 02/27/18 Lisinopril [Zestril] 20 mg PO DAILY 02/27/18 02/27/18 Potassium Chloride ER [K-Dur 20] 20 meq PO DAILY 02/27/18 02/27/18 Simvastatin [Zocor] 20 mg PO HS 02/27/18 02/27/18 Previous Rx's Medication Instructions Recorded Beclomethasone Dipropionate [Qvar 2 puff INHALATION RT-BID 30 Days 12/10/17 40 mcg] #3 aer.w.adap Cholecalciferol [Vitamin D3] 5,000 unit PO DAILY 30 Days #30 tab 12/10/17 Gabapentin [Neurontin] 200 mg PO TID 30 Days #90 cap 12/10/17 Ipratropium/Albuterol Sulfate 1 puff INHALATION RT-QID 30 Days 12/10/17 [Combivent Respimat Inhaler] #3 mist.inhal Metoprolol Succinate (ER) [Toprol 25 mg PO DAILY 30 Days #30 12/10/17 XL] tab.er.24h lamoTRIgine [LaMICtal] 200 mg PO DAILY 30 Days #30 tablet 12/10/17 risperiDONE [RisperDAL] 2 mg PO BID 30 Days #60 tab 12/10/17 Allergies Allergy/AdvReac Type Severity Reaction Status Date / Time lactose AdvReac Nausea & Verified 02/27/18 17:19 Vomiting Review of Systems ROS Statement: Those systems with pertinent positive or pertinent negative responses have been documented in the HPI. ROS Other: All systems not noted in ROS Statement are negative. Past Medical History Past Medical History: COPD, Hyperlipidemia, Hypertension Additional Past Medical History / Comment(s): alcohol syndrome. Neuropathy. "Pinched nerve in back" History of Any Multi-Drug Resistant Organisms: None Reported Additional Past Surgical History / Comment(s): RIGHT KNEE ACL, PCL. Surgery for fracture right knee Past Anesthesia/Blood Transfusion Reactions: No Reported Reaction Past Psychological History: ADD/ADHD, Anxiety, Depression Smoking Status: Current every day smoker Past Alcohol Use History: None Reported Past Drug Use History: None Reported - Past Family History Mother Family Medical History: Myocardial Infarction ([place]), Seizure Disorder Additional Family Medical History / Comment(s): Pt. reports she at the age of 35 years of age. Father Family Medical History: Unable to Obtain Additional Family Medical History / Comment(s): Pt. states that his father is also and he is unsure of hx. Pt. uncertain of the age of his father when he . General Exam - General Exam Comments Initial Comments: General: Awake and alert, well-developed; in no apparent distress. Lying comfortably on ED stretcher. HEENT: Head atraumatic, normocephalic. Pupils are equal, round and reactive to light. Extraocular movements intact. Oropharynx moist without erythema or exudate. Neck: Supple. Normal ROM. Cardiovascular: Regular rate and rhythm. No murmurs, rubs or gallops. Chest symmetrical. Respiratory: Lungs clear to auscultation bilaterally. No wheezes, rales or rhonchi. Normal respiratory effort with no use of accessory muscles. Abdomen: Soft, non-tender, non-distended. No rigidity, rebound or guarding. Normal bowel sounds in all 4 quadrants. Musculoskeletal: Normal ROM bilateral upper and lower extremities. Tenderness on palpation of bilateral calves. 2+ pitting edema bilateral lower extremities. Sensation is intact. Pedal pulses are 2+ equal and palpable bilaterally. Skin: [place], warm and dry without rashes. Neurological: Alert and oriented x3. CN II-XII grossly intact. Speech is fluent and answers are appropriate. No focal neuro deficits. Psychiatric: Normal mood and affect. No overt signs of depression or anxiety noted. Limitations: no limitations Course Vital Signs 02/27/18 16:23 Temperature 97.8 F Pulse Rate 75 Respiratory 20 Rate Blood Pressure 136/82 O2 Sat by Pulse 98 Oximetry Medical Decision Making - Medical Decision Making This is a 32-year-old male who presents to the emergency department with chief complaint of bilateral lower extremity edema. On physical examination, patient has pitting edema to bilateral lower extremities. This is painful on palpation. No warmth or redness noted. Ultrasound venous Doppler of bilateral lower extremities was negative for acute DVT. CBC and CMP were unremarkable. Troponin was negative. EKG revealed normal sinus rhythm. BNP was within normal limits. This case was discussed with attending physician, Dr. Almanza who recommended that patient stop his metoprolol as this may cause peripheral edema. Patient is to follow-up with his primary care provider within 1-2 days. Vital signs are stable and he is in no acute distress. He'll be discharged home at this time. All questions answered. - Lab Data Result diagrams: 02/27/18 17:51 02/27/18 17:51 Lab Results 02/27/18 02/27/18 02/27/18 Range/Units 17:51 17:51 17:51 WBC 14.7 H (3.8-10.6) k/uL RBC 4.72 (4.30-5.90) m/uL Hgb 14.5 (13.0-17.5) gm/dL Hct 44.5 (39.0-53.0) % MCV 94.2 (80.0-100.0) fL MCH 30.7 (25.0-35.0) pg MCHC 32.6 (31.0-37.0) g/dL RDW 14.7 (11.5-15.5) % Plt Count 301 (150-450) k/uL Neutrophils % 74 % Lymphocytes % 16 % Monocytes % 6 % Eosinophils % 2 % Basophils % 1 % Neutrophils # 10.8 H (1.3-7.7) k/uL Lymphocytes # 2.3 (1.0-4.8) k/uL Monocytes # 0.8 (0-1.0) k/uL Eosinophils # 0.3 (0-0.7) k/uL Basophils # 0.1 (0-0.2) k/uL Sodium 138 (137-145) mmol/L Potassium 4.4 (3.5-5.1) mmol/L Chloride 101 (98-107) mmol/L Carbon Dioxide 28 (22-30) mmol/L Anion Gap 9 mmol/L BUN 11 (9-20) mg/dL Creatinine 0.89 (0.66-1.25) mg/dL Est GFR (CKD-EPI)AfAm >90 (>60 ml/min/1.73 sqM) Est GFR (CKD-EPI)NonAf >90 (>60 ml/min/1.73 sqM) Glucose 98 (74-99) mg/dL Calcium 9.2 (8.4-10.2) mg/dL Total Bilirubin 0.5 (0.2-1.3) mg/dL AST 24 (17-59) U/L ALT 47 (21-72) U/L Alkaline Phosphatase 92 (38-126) U/L Troponin I (0.000-0.034) ng/mL NT-Pro-B Natriuret Pep 121 pg/mL Total Protein 6.5 (6.3-8.2) g/dL Albumin 3.8 (3.5-5.0) g/dL 02/27/18 Range/Units 17:51 WBC (3.8-10.6) k/uL RBC (4.30-5.90) m/uL Hgb (13.0-17.5) gm/dL Hct (39.0-53.0) % MCV (80.0-100.0) fL MCH (25.0-35.0) pg MCHC (31.0-37.0) g/dL RDW (11.5-15.5) % Plt Count (150-450) k/uL Neutrophils % % Lymphocytes % % Monocytes % % Eosinophils % % Basophils % % Neutrophils # (1.3-7.7) k/uL Lymphocytes # (1.0-4.8) k/uL Monocytes # (0-1.0) k/uL Eosinophils # (0-0.7) k/uL Basophils # (0-0.2) k/uL Sodium (137-145) mmol/L Potassium (3.5-5.1) mmol/L Chloride (98-107) mmol/L Carbon Dioxide (22-30) mmol/L Anion Gap mmol/L BUN (9-20) mg/dL Creatinine (0.66-1.25) mg/dL Est GFR (CKD-EPI)AfAm (>60 ml/min/1.73 sqM) Est GFR (CKD-EPI)NonAf (>60 ml/min/1.73 sqM) Glucose (74-99) mg/dL Calcium (8.4-10.2) mg/dL Total Bilirubin (0.2-1.3) mg/dL AST (17-59) U/L ALT (21-72) U/L Alkaline Phosphatase (38-126) U/L Troponin I <0.012 (0.000-0.034) ng/mL NT-Pro-B Natriuret Pep pg/mL Total Protein (6.3-8.2) g/dL Albumin (3.5-5.0) g/dL - Radiology Data Radiology results: report reviewed Ultrasound venous Doppler duplex bilateral lower extremities impression: Negative exam. No evidence of deep venous thrombosis in both legs. Chest x-ray impression: Normal chest. No change. Disposition Clinical Impression: Bilateral edema of lower extremity Disposition: HOME SELF-CARE Condition: Good Instructions: Leg Edema (ED) Additional Instructions: Please follow up with primary care provider within 1-2 days. Return to emergency department if symptoms should worsen or any concerns arise. Is patient prescribed a controlled substance at d/c from ED?: No Referrals: [facility] [Primary Care Provider] - 1-2 days Time of Disposition: 19:53
[2018-02-27 18:09] LABS: Basophils # (A) 0.1 k/uL (0-0.2); Basophils % (A) 1 %; Eosinophils # (A) 0.3 k/uL (0-0.7); Eosinophils % (A) 2 %; HCT 44.5 % (39.0-53.0); HGB 14.5 gm/dL (13.0-17.5); Lymphocytes # (A) 2.3 k/uL (1.0-4.8); Lymphocytes % (A) 16 %; MCH 30.7 pg (25.0-35.0); MCHC 32.6 g/dL (31.0-37.0); MCV 94.2 fL (80.0-100.0); Mean Platelet Volume 6.8; Monocytes # (A) 0.8 k/uL (0-1.0); Monocytes % (A) 6 %; Neutrophils # (A) 10.8 k/uL (1.3-7.7); Neutrophils % (A) 74 %; Platelet Count 301 k/uL (150-450); RBC 4.72 m/uL (4.30-5.90); RDW 14.7 % (11.5-15.5); WBC 14.7 k/uL (3.8-10.6)
[2018-02-27 18:16] LABS: ALT 47 U/L (21-72); AST 24 U/L (17-59); Albumin 3.8 g/dL (3.5-5.0); Alkaline Phosphatase 92 U/L (38-126); Anion Gap 9 mmol/L; Blood Urea Nitrogen 11 mg/dL (9-20); Calcium 9.2 mg/dL (8.4-10.2); Carbon Dioxide 28 mmol/L (22-30); Chloride 101 mmol/L (98-107); Glucose 98 mg/dL (74-99); Potassium 4.4 mmol/L (3.5-5.1); Sodium 138 mmol/L (137-145); Total Bilirubin 0.5 mg/dL (0.2-1.3); Total Protein 6.5 g/dL (6.3-8.2)
--- NOTE | 2018-02-27 18:59 | US ---
EXAMINATION TYPE: US venous doppler duplex LE BI DATE OF EXAM: 02/27/2018 6:44 PM COMPARISON: NONE CLINICAL HISTORY: Pain. Bilateral leg edema SIDE PERFORMED: Bilateral TECHNIQUE: The lower extremity deep venous system is examined utilizing real time linear array sonog johanny with graded compression, doppler sonography and color-flow sonography. VESSELS IMAGED: External Iliac Vein (EIV) Common Femoral Vein Deep Femoral Vein Greater Saphenous Vein * Femoral Vein Popliteal Vein Small Saphenous Vein * Proximal Calf Veins (* superficial vessels) Exam technically difficult due to large body habitus. Right Leg: Negative for DVT Left Leg: Negative for DVT IMPRESSION: Negative exam. No evidence of deep venous thrombosis in both legs.
--- NOTE | 2018-02-27 19:26 | XR ---
EXAMINATION TYPE: XR chest 2V DATE OF EXAM: 02/27/2018 COMPARISON: 02/08/2016 HISTORY: Limb swelling TECHNIQUE: Frontal and lateral views of the chest are obtained. FINDINGS: Heart and mediastinum are normal. Lungs are clear. Diaphragm is normal. Bony thorax is nor mal. IMPRESSION: Normal chest. No change.
== END 2018-02-27 20:41 | disposition home or self-care (01) ==
LOC: EC 16:12
DX: R60.0 Localized edema (principal); M79.604 Pain in right leg; M79.605 Pain in left leg; E78.5 Hyperlipidemia, unspecified; I10 Essential (primary) hypertension; J44.9 Chronic obstructive pulmonary disease, unspecified; F17.200 Nicotine dependence, unspecified, uncomplicated; Z79.899 Other long term (current) drug therapy; Z91.011 Allergy to milk products; Z98.890 Other specified postprocedural states
CPT/HCPCS: 36415; 71046; 80053; 83880; 84484; 85025; 93005; 93970; 99284

== ENCOUNTER 2018-03-11 17:43 | Emergency (ER) | payer OTHER ==
[2018-03-11 18:01] VITALS: TEMP 98.5
--- NOTE | 2018-03-11 18:39 | ED ---
Psych HPI - General Chief Complaint: Psychiatric Symptoms Stated Complaint: Mental Health Time Seen by Provider: 03/11/18 17:43 Source: patient, EMS, RN notes reviewed Mode of arrival: EMS - History of Present Illness Initial Comments: This is a 30-year-old male with a history of schizophrenia who is brought in by EMS for evaluation for hearing voices. Patient is not sure if he is on any medications this time he does state he is been hearing voices he does some voices were family who were going to get a house and provide for which is not the case. He denies any drugs or alcohol suicidal thoughts or ideation. He was brought in from a intermediate. He denies any fevers chills nausea vomiting sweats shortness breath or other symptoms MD Complaint: other - Related Data Home Medications Medication Instructions Recorded Confirmed Albuterol Inhaler [Ventolin Hfa 1 - 2 puff INHALATION RT-Q4H PRN 02/27/18 Inhaler] Furosemide [Lasix] 40 mg PO DAILY 02/27/18 02/27/18 Lisinopril [Zestril] 20 mg PO DAILY 02/27/18 02/27/18 Potassium Chloride ER [K-Dur 20] 20 meq PO DAILY 02/27/18 02/27/18 Simvastatin [Zocor] 20 mg PO HS 02/27/18 02/27/18 Previous Rx's Medication Instructions Recorded Beclomethasone Dipropionate [Qvar 2 puff INHALATION RT-BID 30 Days 12/10/17 40 mcg] #3 aer.w.adap Cholecalciferol [Vitamin D3] 5,000 unit PO DAILY 30 Days #30 tab 12/10/17 Gabapentin [Neurontin] 200 mg PO TID 30 Days #90 cap 12/10/17 Ipratropium/Albuterol Sulfate 1 puff INHALATION RT-QID 30 Days 12/10/17 [Combivent Respimat Inhaler] #3 mist.inhal Metoprolol Succinate (ER) [Toprol 25 mg PO DAILY 30 Days #30 12/10/17 XL] tab.er.24h lamoTRIgine [LaMICtal] 200 mg PO DAILY 30 Days #30 tablet 12/10/17 risperiDONE [RisperDAL] 2 mg PO BID 30 Days #60 tab 12/10/17 Allergies Allergy/AdvReac Type Severity Reaction Status Date / Time lactose AdvReac Nausea & Verified 03/11/18 18:09 Vomiting Review of Systems ROS Statement: Those systems with pertinent positive or pertinent negative responses have been documented in the HPI. ROS Other: All systems not noted in ROS Statement are negative. Past Medical History Past Medical History: COPD, Hyperlipidemia, Hypertension Additional Past Medical History / Comment(s): alcohol syndrome. Neuropathy. "Pinched nerve in back" History of Any Multi-Drug Resistant Organisms: None Reported Additional Past Surgical History / Comment(s): RIGHT KNEE ACL, PCL. Surgery for fracture right knee Past Anesthesia/Blood Transfusion Reactions: No Reported Reaction Past Psychological History: ADD/ADHD, Anxiety, Depression, Schizophrenia Smoking Status: Current every day smoker Past Alcohol Use History: None Reported Past Drug Use History: None Reported - Past Family History Mother Family Medical History: Myocardial Infarction ([place]), Seizure Disorder Additional Family Medical History / Comment(s): Pt. reports she at the age of 35 years of age. Father Family Medical History: Unable to Obtain Additional Family Medical History / Comment(s): Pt. states that his father is also and he is unsure of hx. Pt. uncertain of the age of his father when he . General Exam - General Exam Comments Initial Comments: This is a well-developed well-nourished awake alert oriented times 3 male he does state he is hearing voices at this time Limitations: no limitations General appearance: alert, in no apparent distress Head exam: Present: atraumatic, normocephalic, normal inspection Eye exam: Present: normal appearance, PERRL, EOMI. Absent: scleral icterus, conjunctival injection, periorbital swelling ENT exam: Present: normal exam, mucous membranes moist Neck exam: Present: normal inspection. Absent: tenderness, meningismus, lymphadenopathy Respiratory exam: Present: normal lung sounds bilaterally. Absent: respiratory distress, wheezes, rales, rhonchi, stridor Cardiovascular Exam: Present: regular rate, normal rhythm, normal heart sounds. Absent: systolic murmur, diastolic murmur, rubs, gallop, clicks GI/Abdominal exam: Present: soft, normal bowel sounds. Absent: distended, tenderness, guarding, rebound, rigid Extremities exam: Present: normal inspection, full ROM, normal capillary refill. Absent: tenderness, pedal edema, joint swelling, calf tenderness Back exam: Present: normal inspection Neurological exam: Present: alert, oriented X3, CN II-XII intact Psychiatric exam: Present: flat affect Skin exam: Present: warm, dry, intact, normal color. Absent: rash Course Vital Signs 03/11/18 17:59 Temperature 98.5 F Pulse Rate 89 Respiratory 18 Rate Blood Pressure 142/80 O2 Sat by Pulse 94 L Oximetry Medical Decision Making - Medical Decision Making The patient was evaluated by psychiatric service and found not to be a risk to himself or anyone else he will be discharged with follow-up with [facility] in 5 days. Patient does have a place to go tonight. He is in agreement with this. - Lab Data Lab Results 03/11/18 Range/Units 19:35 Urine Opiates Screen Not Detected (NotDetected) Ur Oxycodone Screen Not Detected (NotDetected) Urine Methadone Screen Not Detected (NotDetected) Ur Propoxyphene Screen Not Detected (NotDetected) Ur Barbiturates Screen Not Detected (NotDetected) U Tricyclic Antidepress Not Detected (NotDetected) Ur Phencyclidine Scrn Not Detected (NotDetected) Ur Amphetamines Screen Not Detected (NotDetected) U Methamphetamines Scrn Not Detected (NotDetected) U Benzodiazepines Scrn Not Detected (NotDetected) Urine Cocaine Screen Not Detected (NotDetected) U Marijuana (THC) Screen Not Detected (NotDetected) Disposition Clinical Impression: Chronic schizophrenia Disposition: HOME SELF-CARE Condition: Good Instructions: Schizophrenia (ED) Additional Instructions: Keep your follow-up with [facility] as planned Is patient prescribed a controlled substance at d/c from ED?: No Referrals: [facility] [Primary Care Provider] - 1-2 days
[2018-03-11 20:11] LABS: Amphetamine Screen,Urine Not Detected (NotDetected); Barbiturate Screen,Urine Not Detected (NotDetected); Benzodiazepines Screen,Urine Not Detected (NotDetected); Cocaine Screen,Urine Not Detected (NotDetected); Methadone Screen, Urine Not Detected (NotDetected); Opiate Screen,Urine Not Detected (NotDetected); Oxycodone Screen, Urine Not Detected (NotDetected); Phencyclidine Screen,Urine Not Detected (NotDetected); Tricyclic Antidepressant,Urine Not Detected (NotDetected); Urn Cannabinoid Scrn Not Detected (NotDetected)
[2018-03-11 20:27] VITALS: BP 105/65; PULSE 99; RESP 16
== END 2018-03-11 20:25 | disposition home or self-care (01) ==
LOC: EC 17:43
DX: F20.9 Schizophrenia, unspecified (principal); J44.9 Chronic obstructive pulmonary disease, unspecified; E78.5 Hyperlipidemia, unspecified; I10 Essential (primary) hypertension; F17.200 Nicotine dependence, unspecified, uncomplicated; Z79.899 Other long term (current) drug therapy; Z91.011 Allergy to milk products
CPT/HCPCS: 80306; 82075; 99285

== ENCOUNTER 2018-08-20 11:37 | Observation (INO) | payer OTHER ==
--- NOTE | 2018-08-20 12:02 | ED ---
General Adult HPI - General Chief complaint: Shortness of Breath Stated complaint: leg swelling, 40 lb weight gain in a month Source: patient Mode of arrival: ambulatory Limitations: no limitations - History of Present Illness Initial comments: Dictation was produced using [employer] dictation software. please excuse any grammatical, word or spelling errors. Chief Complaint: 33-year-old male past medical history of COPD, dyslipidemia hypertension presents with wheezing and 40, weight gain over the last month. History of Present Illness: The 33-year-old male sent in from [facility] 440 pound weight gain and difficulty in breathing. Patient states that he's been having symptoms of orthopnea. Reports 40 pound weight gain in the last month. Patient states she still makes urine. He states that his lower extremities are she was swollen. Medications reviewed. Patient has history of asthma and takes a albuterol inhaler. Patient denies any history of cardiac disease. Denies CHF or coronary artery disease. Denies any constitutional symptoms. The ROS documented in this emergency department record has been reviewed and confirmed by me. Those systems with pertinent positive or negative responses have been documented in the HPI. All other systems are other negative and/or noncontributory. - Related Data Home Medications Medication Instructions Recorded Confirmed Albuterol Inhaler [Ventolin Hfa 1 - 2 puff INHALATION RT-Q4H PRN 02/27/18 Inhaler] Lisinopril [Zestril] 20 mg PO DAILY 02/27/18 08/20/18 Simvastatin [Zocor] 20 mg PO HS 02/27/18 08/20/18 Cyanocobalamin (Vitamin B-12) 1,000 mg PO DAILY 07/15/18 08/20/18 [Vitamin B-12] Loratadine [Claritin] 10 mg PO DAILY 07/15/18 08/20/18 Menthol [Nice Cough Drops] 1 lozenge MUCOUS MEM Q2H PRN 08/20/18 08/20/18 Paliperidone IM [Invega Sustenna] 234 mg IM Q28D 08/20/18 08/20/18 Previous Rx's Medication Instructions Recorded Beclomethasone Dipropionate [Qvar 2 puff INHALATION RT-BID 30 Days 12/10/17 40 mcg] #3 aer.w.adap Cholecalciferol [Vitamin D3] 5,000 unit PO DAILY 30 Days #30 tab 12/10/17 Ipratropium/Albuterol Sulfate 1 puff INHALATION RT-QID 30 Days 12/10/17 [Combivent Respimat Inhaler] #3 mist.inhal Metoprolol Succinate (ER) [Toprol 25 mg PO DAILY 30 Days #30 12/10/17 XL] tab.er.24h Doxycycline [Vibramycin] 100 mg PO BID 10 Days #20 cap 07/21/18 lamoTRIgine [LaMICtal] 200 mg PO DAILY 30 Days #30 tablet 07/21/18 Allergies Allergy/AdvReac Type Severity Reaction Status Date / Time lactose AdvReac Nausea & Verified 08/20/18 12:06 Vomiting Review of Systems ROS Statement: Those systems with pertinent positive or pertinent negative responses have been documented in the HPI. ROS Other: All systems not noted in ROS Statement are negative. Past Medical History Past Medical History: COPD, Hyperlipidemia, Hypertension Additional Past Medical History / Comment(s): alcohol syndrome. Neuropathy. "Pinched nerve in back" History of Any Multi-Drug Resistant Organisms: None Reported Additional Past Surgical History / Comment(s): RIGHT KNEE ACL, PCL. Surgery for fracture right knee Past Anesthesia/Blood Transfusion Reactions: No Reported Reaction Past Psychological History: ADD/ADHD, Anxiety, Depression, Schizophrenia Smoking Status: Current every day smoker Past Alcohol Use History: None Reported Past Drug Use History: None Reported - Past Family History Mother Family Medical History: Myocardial Infarction ([place]), Seizure Disorder Additional Family Medical History / Comment(s): Pt. reports she at the age of 35 years of age. Father Family Medical History: Unable to Obtain Additional Family Medical History / Comment(s): Pt. states that his father is also and he is unsure of hx. Pt. uncertain of the age of his father when he . General Exam - General Exam Comments Initial Comments: PHYSICAL EXAM: General Impression: Alert and oriented x3, not in acute distress HEENT: Normocephalic atraumatic, extra-ocular movements intact, pupils equal and reactive to light bilaterally, mucous membranes moist. Cardiovascular: Heart regular rate and rhythm, S1&S2 audible, no murmurs, rubs or gallops Chest: Bilateral lung wheezing right worse than left Abdomen: Bowel sounds present, abdomen soft, non-tender, non-distended, no organomegaly Musculoskeletal: Pulses present and equal in all extremities, 1+ pitting edema to bilateral lower extremities Motor: Power 5/5 bilaterally, no focal deficits noted Neurological: CN II-XII grossly intact, no focal motor or sensory deficits noted Skin: Intact with no visualized rashes Psych: Normal affect and mood Limitations: no limitations Course Vital Signs 08/20/18 11:39 Temperature 98.0 F Pulse Rate 106 H Respiratory 24 Rate Blood Pressure 148/96 O2 Sat by Pulse 99 Oximetry Medical Decision Making - Medical Decision Making ED course: 33-year-old male with clinical presentation consistent with new- onset CHF. Vital signs upon arrival shows heart rate of 106, respiratory rate 24, respiratory signs within acceptable limits.Return evaluation obtained. Mild leukocytosis of 11.4 likely secondary to stress. Coag panel unremarkable. Metabolic panel shows no acute processes. Patient does have a troponin level 0.036. brain natriuretic peptide is 101. Chest x-ray was obtained showing mild bilateral interstitial edema. Clinical presentation consistent with new- onset acute Stated heart failure. Patient be admitted to [facility] with cardiology consultation. Patient given 40 mg of IV Lasix. EKG interpretation: Ventricular rate 90, normal sinus rhythm, UT interval 140, care is 80, QTc 440. No UT prolongation, no QTC prolongation, no ST or T-wave changes noted. Overall, this EKG is unremarkable - Lab Data Result diagrams: 08/20/18 12:32 08/20/18 12:32 Lab Results 08/20/18 08/20/18 08/20/18 Range/Units 12:32 12:32 12:32 WBC 11.4 H (3.8-10.6) k/uL RBC 5.09 (4.30-5.90) m/uL Hgb 15.6 (13.0-17.5) gm/dL Hct 48.7 (39.0-53.0) % MCV 95.5 (80.0-100.0) fL MCH 30.7 (25.0-35.0) pg MCHC 32.1 (31.0-37.0) g/dL RDW 14.3 (11.5-15.5) % Plt Count 264 (150-450) k/uL Neutrophils % 61 % Lymphocytes % 25 % Monocytes % 7 % Eosinophils % 4 % Basophils % 1 % Neutrophils # 7.0 (1.3-7.7) k/uL Lymphocytes # 2.9 (1.0-4.8) k/uL Monocytes # 0.7 (0-1.0) k/uL Eosinophils # 0.5 (0-0.7) k/uL Basophils # 0.1 (0-0.2) k/uL PT (9.0-12.0) sec INR (<1.2) APTT (22.0-30.0) sec Sodium 143 (137-145) mmol/L Potassium 4.8 (3.5-5.1) mmol/L Chloride 105 (98-107) mmol/L Carbon Dioxide 30 (22-30) mmol/L Anion Gap 8 mmol/L BUN 13 (9-20) mg/dL Creatinine 0.79 (0.66-1.25) mg/dL Est GFR (CKD-EPI)AfAm >90 (>60 ml/min/1.73 sqM) Est GFR (CKD-EPI)NonAf >90 (>60 ml/min/1.73 sqM) Glucose 107 H (74-99) mg/dL Calcium 9.1 (8.4-10.2) mg/dL Magnesium 2.4 H (1.6-2.3) mg/dL Total Bilirubin 0.3 (0.2-1.3) mg/dL AST 43 (17-59) U/L ALT 64 (21-72) U/L Alkaline Phosphatase 88 (38-126) U/L Total Creatine Kinase 259 H (55-170) U/L CK-MB (CK-2) 3.5 H (0.0-2.4) ng/mL CK-MB (CK-2) Rel Index 1.4 Troponin I 0.036 H* (0.000-0.034) ng/mL NT-Pro-B Natriuret Pep pg/mL Total Protein 7.4 (6.3-8.2) g/dL Albumin 4.0 (3.5-5.0) g/dL 08/20/18 08/20/18 Range/Units 12:32 12:32 WBC (3.8-10.6) k/uL RBC (4.30-5.90) m/uL Hgb (13.0-17.5) gm/dL Hct (39.0-53.0) % MCV (80.0-100.0) fL MCH (25.0-35.0) pg MCHC (31.0-37.0) g/dL RDW (11.5-15.5) % Plt Count (150-450) k/uL Neutrophils % % Lymphocytes % % Monocytes % % Eosinophils % % Basophils % % Neutrophils # (1.3-7.7) k/uL Lymphocytes # (1.0-4.8) k/uL Monocytes # (0-1.0) k/uL Eosinophils # (0-0.7) k/uL Basophils # (0-0.2) k/uL PT 9.3 (9.0-12.0) sec INR 0.8 (<1.2) APTT 21.2 L (22.0-30.0) sec Sodium (137-145) mmol/L Potassium (3.5-5.1) mmol/L Chloride (98-107) mmol/L Carbon Dioxide (22-30) mmol/L Anion Gap mmol/L BUN (9-20) mg/dL Creatinine (0.66-1.25) mg/dL Est GFR (CKD-EPI)AfAm (>60 ml/min/1.73 sqM) Est GFR (CKD-EPI)NonAf (>60 ml/min/1.73 sqM) Glucose (74-99) mg/dL Calcium (8.4-10.2) mg/dL Magnesium (1.6-2.3) mg/dL Total Bilirubin (0.2-1.3) mg/dL AST (17-59) U/L ALT (21-72) U/L Alkaline Phosphatase (38-126) U/L Total Creatine Kinase (55-170) U/L CK-MB (CK-2) (0.0-2.4) ng/mL CK-MB (CK-2) Rel Index Troponin I (0.000-0.034) ng/mL NT-Pro-B Natriuret Pep 101 pg/mL Total Protein (6.3-8.2) g/dL Albumin (3.5-5.0) g/dL Disposition Clinical Impression: Congestive heart failure Disposition: ADMITTED IP TO THIS HOSP Is patient prescribed a controlled substance at d/c from ED?: No Referrals: [facility] [Primary Care Provider] - 1-2 days Decision Time: 13:54
[2018-08-20 12:54] LABS: Basophils # (A) 0.1 k/uL (0-0.2); Basophils % (A) 1 %; Eosinophils # (A) 0.5 k/uL (0-0.7); Eosinophils % (A) 4 %; HCT 48.7 % (39.0-53.0); HGB 15.6 gm/dL (13.0-17.5); Lymphocytes # (A) 2.9 k/uL (1.0-4.8); Lymphocytes % (A) 25 %; MCH 30.7 pg (25.0-35.0); MCHC 32.1 g/dL (31.0-37.0); MCV 95.5 fL (80.0-100.0); Mean Platelet Volume 6.9; Monocytes # (A) 0.7 k/uL (0-1.0); Monocytes % (A) 7 %; Neutrophils % (A) 61 %; Platelet Count 264 k/uL (150-450); RBC 5.09 m/uL (4.30-5.90); RDW 14.3 % (11.5-15.5); WBC 11.4 k/uL (3.8-10.6)
[2018-08-20 13:04] LABS: INR 0.8 (<1.2); Partial Thromboplastin Time 21.2 sec (22.0-30.0); Prothrombin Time 9.3 sec (9.0-12.0)
[2018-08-20 13:07] LABS: ALT 64 U/L (21-72); AST 43 U/L (17-59); Alkaline Phosphatase 88 U/L (38-126); Anion Gap 8 mmol/L; Blood Urea Nitrogen 13 mg/dL (9-20); Calcium 9.1 mg/dL (8.4-10.2); Carbon Dioxide 30 mmol/L (22-30); Chloride 105 mmol/L (98-107); Glucose 107 mg/dL (74-99); Magnesium 2.4 mg/dL (1.6-2.3); Potassium 4.8 mmol/L (3.5-5.1); Sodium 143 mmol/L (137-145); Total Bilirubin 0.3 mg/dL (0.2-1.3); Total Protein 7.4 g/dL (6.3-8.2)
[2018-08-20 13:25] LABS: Creatine Kinase MB 3.5 ng/mL (0.0-2.4)
--- NOTE | 2018-08-20 13:31 | XR ---
EXAMINATION TYPE: XR chest 2V DATE OF EXAM: 08/20/2018 COMPARISON: Chest x-ray July 16, 2018. HISTORY: Shortness of breath for weeks with edema and swelling in legs. TECHNIQUE: Frontal and lateral views of the chest are obtained. FINDINGS: Exam suboptimal secondary to patient's large body habitus. There is no suspicious focal ai r space opacity, pleural effusion, or pneumothorax seen. The cardiac silhouette size is stable and u pper limits of normal. Mild underlying interstitial edema is felt present bilaterally. The osseous s tructures are intact. IMPRESSION: Perhaps mild bilateral Interstitial edema, no focal infiltrate. Correlate for fluid over load state.
[2018-08-20 13:35] LABS: Troponin I 0.036 ng/mL (0.000-0.034)
[2018-08-20] MEDS ORDERED: FUROSEMIDE 10 MG/ML 4 ML VIAL IV STA (13:58)
[2018-08-20] MEDS ORDERED: MENTHOL (NICE) LOZENGE MUCOUS MEM PRN (15:43)
--- NOTE | 2018-08-20 15:58 | P.HPIM ---
History of Present Illness H&P Date: 08/20/18 Chief Complaint: Referred to the ER for 30 pound weight gain and shortness of breath The patient is a morbidly obese 33-year-old male with a past with a history of bipolar disorder, schizoaffective disorder, COPD, essential hypertension, hyperlipidemia, obstructive sleep apnea not on CPAP therapy for the last 3 years who presents to the ER after being referred here from [facility]. Apparently the patient presented today for normal follow-up for his psychiatric issues with it was noted that the patient had had a significant weight gain of 30 pounds in the last month. The patient reports increasing dyspnea on exertion and increasing lower extremity swelling in his feet and lower legs, the patient also complains of pain described as tightness in his bilateral lower extremities. The patient reports productive cough over the last 7 days and reports that he's been wheezing intermittently for the last month. He also reports subjective fevers chills or night sweats Along with URI symptoms such as runny nose and chest congestion during this time. The patient has a significant smoking history continues to smoke as well as use marijuana. The patient reports his medications have been relatively stable with exception of recently adding Invega over the last month. The patient also complains of lightheadedness and dizziness at times. In the ER the patient had a comprehensive workup. A EKG that showed normal sinus rhythm with nonspecific T-wave abnormality, chest x-ray was consistent with mild bilateral interstitial edema and possible fluid. The receipt count was 11.4. Total CK 259, CK-MB 3.5 and troponin 0.036, NT proBNP 101. The patient was given a loading dose of Lasix 40 mg IV 1 and recommended for admission Review of Systems Pertinent positives per HPI all other systems otherwise negative Past Medical History Past Medical History: Asthma, COPD, Hyperlipidemia, Hypertension Additional Past Medical History / Comment(s): alcohol syndrome. Neuropathy. "Pinched nerve in back", "add, anxiety, biipolar depression, schizophrenia/schizoaffective disorder", bronchitis History of Any Multi-Drug Resistant Organisms: None Reported Additional Past Surgical History / Comment(s): RIGHT KNEE ACL, PCL. Surgery for fracture right knee Past Anesthesia/Blood Transfusion Reactions: No Reported Reaction Smoking Status: Current every day smoker - Past Family History Mother Family Medical History: Myocardial Infarction ([place]), Seizure Disorder Additional Family Medical History / Comment(s): Pt. reports she at the age of 35 years of age. Father Family Medical History: Unable to Obtain Additional Family Medical History / Comment(s): Pt. states that his father is also and he is unsure of hx. Pt. uncertain of the age of his father when he . Medications and Allergies Home Medications Medication Instructions Recorded Confirmed Type Beclomethasone Dipropionate [Qvar 2 puff INHALATION RT-BID 30 Days 12/10/17 Rx 40 mcg] #3 aer.w.adap Cholecalciferol [Vitamin D3] 5,000 unit PO DAILY 30 Days #30 tab 12/10/17 Rx Ipratropium/Albuterol Sulfate 1 puff INHALATION RT-QID 30 Days 12/10/17 Rx [Combivent Respimat Inhaler] #3 mist.inhal Metoprolol Succinate (ER) [Toprol 25 mg PO DAILY 30 Days #30 12/10/17 08/20/18 Rx XL] tab.er.24h Albuterol Inhaler [Ventolin Hfa 1 - 2 puff INHALATION RT-Q4H PRN 02/27/18 History Inhaler] Lisinopril [Zestril] 20 mg PO DAILY 02/27/18 08/20/18 History Simvastatin [Zocor] 20 mg PO HS 02/27/18 08/20/18 History Cyanocobalamin (Vitamin B-12) 1,000 mg PO DAILY 07/15/18 08/20/18 History [Vitamin B-12] Loratadine [Claritin] 10 mg PO DAILY 07/15/18 08/20/18 History Doxycycline [Vibramycin] 100 mg PO BID 10 Days #20 cap 07/21/18 08/20/18 Rx lamoTRIgine [LaMICtal] 200 mg PO DAILY 30 Days #30 tablet 07/21/18 08/20/18 Rx Menthol [Nice Cough Drops] 1 lozenge MUCOUS MEM Q2H PRN 08/20/18 08/20/18 History Paliperidone IM [Invega Sustenna] 234 mg IM Q28D 08/20/18 08/20/18 History Allergies Allergy/AdvReac Type Severity Reaction Status Date / Time lactose AdvReac Nausea & Verified 08/20/18 12:06 Vomiting Physical Exam Vitals: Vital Signs Temp Pulse Resp BP Pulse Ox 08/20/18 15:18 96 18 140/84 89 L 08/20/18 14:00 149/88 08/20/18 11:39 98.0 F 106 H 24 148/96 99 Intake and Output 08/20/18 08/20/18 08/20/18 06:59 14:59 22:59 Other: Weight 167.376 kg Constitutional: No acute distress, conversant, pleasant, morbidly obese Eyes: Anicteric sclerae, moist conjunctiva, no lid-lag, PERRLA ENMT: NC/AT,Oropharynx clear, no erythema, exudates Neck:Supple, FROM, no masses, or JVD, No carotid bruits; No thyromegaly Lungs: Diminished in the bases, Faint expiratory wheezes, Clear to percussion, Normal respiratory effort, no accessory muscle use Cardiovascular: Heart regular in rate and rhythm, No murmurs, gallops, or rubs no peripheral edema Abdominal: Soft Nontender, nom distended, no guarding, no rebound or rigidity, Normoactive bowel sounds No hepatomegaly, No splenomegaly, No palpable mass No abdominal wall hernia noted Skin: Normal temperature, tone, texture, turgor, No induration No subcutaneous nodules, No rash, lesions, No ulcers Extremities:No digital cyanosis No clubbing, Pedal pulses intact and symmetrical Radial pulses intact and symmetrical Normal gait and station, No calf tenderness Psychiatric: Alert and oriented to person, place and time, Appropriate affect Intact judgement Neuro: Muscles Strength 5/5 in all 4 extremities, Sensation to light touch grossly present throughout, Cranial nerves II-XII grossly intact. No focal sensory deficits Results CBC & Chem 7: 08/20/18 12:32 08/20/18 12:32 Labs: Abnormal Lab Results - Last 24 Hours (Table) 08/20/18 08/20/18 08/20/18 Range/Units 12:32 12:32 12:32 WBC 11.4 H (3.8-10.6) k/uL APTT (22.0-30.0) sec Glucose 107 H (74-99) mg/dL Magnesium 2.4 H (1.6-2.3) mg/dL Total Creatine Kinase 259 H (55-170) U/L CK-MB (CK-2) 3.5 H (0.0-2.4) ng/mL Troponin I 0.036 H* (0.000-0.034) ng/mL 08/20/18 Range/Units 12:32 WBC (3.8-10.6) k/uL APTT 21.2 L (22.0-30.0) sec Glucose (74-99) mg/dL Magnesium (1.6-2.3) mg/dL Total Creatine Kinase (55-170) U/L CK-MB (CK-2) (0.0-2.4) ng/mL Troponin I (0.000-0.034) ng/mL Assessment and Plan Assessment: Chronic medical problems Bipolar disorder Schizoaffective disorder Essential hypertension Morbid obesity Obstructive sleep apnea (1) COPD with acute exacerbation Current Visit: Yes Status: Acute Code(s): J44.1 - CHRONIC OBSTRUCTIVE PULMONARY DISEASE W (ACUTE) EXACERBATION SNOMED Code(s): 121519936 (2) Dyspnea on exertion Current Visit: Yes Status: Acute Code(s): R06.09 - OTHER FORMS OF DYSPNEA SNOMED Code(s): 46032385 (3) Elevated troponin Current Visit: Yes Status: Acute Code(s): R74.8 - ABNORMAL LEVELS OF OTHER SERUM ENZYMES SNOMED Code(s): 909584315 (4) Weight gain Current Visit: Yes Status: Acute Code(s): R63.5 - ABNORMAL WEIGHT GAIN SNOMED Code(s): 6295819 (5) Essential hypertension Current Visit: Yes Status: Acute Code(s): I10 - ESSENTIAL (PRIMARY) HYPERTENSION SNOMED Code(s): 64097619 (6) Obstructive sleep apnea Current Visit: Yes Status: Acute Code(s): G47.33 - OBSTRUCTIVE SLEEP APNEA ( ADULT) (PEDIATRIC) SNOMED Code(s): 90048746 Plan: The patient is placed on observation anticipated less than 2 midnight stay after presenting with dyspnea on exertion found to have an acute COPD exacerbation initiated on systemic steroids with prednisone, scheduled and when necessary DuoNeb bronchodilator breathing treatments, Perforomist along with a Z -Tavon. Also reports of 30 pound weight gain in the last month and found to have elevated troponin, will order TSH, flu, echocardiogram, she serially trend troponin and consult cardiology. We'll order d-dimer is elevated continue workup down the PE pathway. Review of EKG negative for any sedation with acute ischemia, patient has been on Invega for approximately 1 month. No sign of QT prolongation. Patient given Lasix in the ER but does not appear edematous or severely fluid overloaded on exam. We'll restart his home hypertensive regimen. Place him on DVT prophylaxis with Lovenox and GI prophylaxis with Protonix. Continue to follow his clinical course CODE STATUS Full code Discussed plan of care with: Patient Anticipated discharge 1-2 days
[2018-08-20] MEDS ORDERED: IPRATROPIUM-ALBUTEROL 3 ML NEB INHALATION PRN (15:59)
[2018-08-20] MEDS ORDERED: predniSONE 50 MG TAB PO STA (16:24)
[2018-08-20] MEDS ORDERED: AZITHROMYCIN 500 MG TAB PO STA (16:34)
[2018-08-20] MEDS ORDERED: ACETAMINOPHEN TAB 325 MG TAB PO PRN (16:35)
[2018-08-20] MEDS ORDERED: PNEUMOCOCCAL VACC-PNEUMOVAX 23 25 MCG/0.5 ML VIAL IM ONE (18:36)
[2018-08-20] MEDS: IPRATROPIUM-ALBUTEROL 3 ML NEB INHALATION SCH ×2 (18:38→20:37)
[2018-08-20] MEDS: ENOXAPARIN 40 MG/0.4 ML SYRINGE SQ SCH (20:11)
[2018-08-20] MEDS ORDERED: LISINOPRIL 20 MG TAB PO STA (20:20)
[2018-08-20] MEDS ORDERED: METOPROLOL SUCCINATE (ER) 25 MG TAB.ER.24H PO STA (20:20)
[2018-08-20 20:38] VITALS: RESP 18
[2018-08-20] MEDS: FORMOTEROL FUMARATE 20 MCG/2 ML NEBU INHALATION SCH (20:44)
[2018-08-20] MEDS ORDERED: ATORVASTATIN 10 MG TAB PO SCH (21:00)
[2018-08-20] MEDS: FLUTICASONE 44 MCG INHALER INHALATION SCH (22:23)
--- NOTE | 2018-08-20 23:39 | P.PN ---
Progress Note - Text Progress Note Date: 08/20/18 received a call from patient nurse, reporting D dimer slightly elevated, at 0.5 patient is currently sleeping, oxygen saturation 92-96% on room air, patient seems to be comfortable denies any chest pain on exam he has expiratory wheezing EKG reviewed and unremarkable patient seems to show improvement with COPD pathway management I will not order CTA at this time, as suspicion for PE is low. I will continue to monitor the patient clinically for now especially he is improving if any change to the worse in his clinical course , then would consider ruling out PE.
[2018-08-21] MEDS: IPRATROPIUM-ALBUTEROL 3 ML NEB INHALATION SCH ×4 (00:13→13:28)
[2018-08-21 02:16] LABS: Cholesterol 198 mg/dL (<200); HDL Cholesterol 56 mg/dL (40-60); LDL Cholesterol,Calculated 126 mg/dL (0-99); Triglycerides 78 mg/dL (<150)
[2018-08-21] MEDS ORDERED: PANTOPRAZOLE 40 MG TABLET PO SCH (07:30)
[2018-08-21] MEDS: FLUTICASONE 44 MCG INHALER INHALATION SCH (08:14)
[2018-08-21] MEDS: FORMOTEROL FUMARATE 20 MCG/2 ML NEBU INHALATION SCH (08:14)
--- NOTE | 2018-08-21 08:51 | XR ---
EXAMINATION TYPE: XR chest 2V DATE OF EXAM: 08/21/2018 COMPARISON: 08/20/2018 TECHNIQUE: PA and lateral views submitted. HISTORY: Shortness of breath FINDINGS: Prominence the upper mediastinum. Heart size stable. Mild coarsened interstitium. No sizable pneumoth orax. No pleural effusion. Right basilar subsegmental atelectasis IMPRESSION: 1. Interstitium demonstrates interval improvement. 2. Subsegmental areas of consolidation. Atelectasis favored over pneumonia correlate clinically for c onfirmation.
[2018-08-21] MEDS ORDERED: lamoTRIgine 100 MG TAB PO SCH (09:00)
[2018-08-21] MEDS ORDERED: METOPROLOL SUCCINATE (ER) 25 MG TAB.ER.24H PO SCH (09:00)
[2018-08-21] MEDS ORDERED: LORATADINE 10 MG TAB PO SCH (09:00)
[2018-08-21] MEDS ORDERED: LISINOPRIL 20 MG TAB PO SCH (09:00)
[2018-08-21] MEDS ORDERED: CYANOCOBALAMIN 500 MCG TAB PO SCH (09:00)
[2018-08-21] MEDS ORDERED: CHOLECALCIFEROL 1,000 UNIT TAB PO SCH (09:00)
[2018-08-21] MEDS ORDERED: AZITHROMYCIN 250 MG TAB PO SCH (09:00)
[2018-08-21] MEDS ORDERED: predniSONE 50 MG TAB PO SCH (09:00)
[2018-08-21] MEDS: ENOXAPARIN 40 MG/0.4 ML SYRINGE SQ SCH (09:11)
--- NOTE | 2018-08-21 11:21 | ECHOF ---
Referral Reason:SOA, r/o CHf MEASUREMENTS -------- HEIGHT: 165.1 cm WEIGHT: 167.4 kg BP: 140/84 RVIDd: 2.9 cm (< 3.3) IVSd: 1.3 cm (0.6 - 1.1) LVIDd: 4.2 cm (3.9 - 5.3) LVPWd: 1.4 cm (0.6 - 1.1) IVSs: 1.7 cm LVIDs: 2.8 cm LVPWs: 1.9 cm LA Diam: 3.5 cm (2.7 - 3.8) Ao Diam: 3.0 cm (2.0 - 3.7) AV Cusp: 2.0 cm (1.5 - 2.6) EPSS: 0.6 cm MV E Bhanu: 0.54 m/s MV DecT: 167 ms MV A Bhanu: 0.38 m/s MV E/A Ratio: 1.41 MV EF SLOPE: 91.98 mm/s (70 - 150) MV EXCURSION: 2.02 cm (> 18.000) FINDINGS -------- Sinus rhythm. This was a technically difficult study with suboptimal views. The left ventricular size is normal. There is moderate concentric left ventricular hypertrophy. O verall left ventricular systolic function is low-normal with, an EF between 50 - 55 %. The right ventricle is normal in size. The left atrial size is normal. The right atrium was not well visualized. The aortic valve is trileaflet and appears structurally normal. The mitral valve is normal. Trace tricuspid regurgitation present. The pulmonic valve was not well visualized. The aortic root size is normal. IVC Not well visulized. There is no pericardial effusion. CONCLUSIONS -------- 1. Sinus rhythm. 2. This was a technically difficult study with suboptimal views. 3. The left ventricular size is normal. 4. There is moderate concentric left ventricular hypertrophy. 5. Overall left ventricular systolic function is low-normal with, an EF between 50 - 55 %. 6. The left atrial size is normal. 7. The aortic valve is trileaflet and appears structurally normal. 8. The mitral valve is normal. 9. Trace tricuspid regurgitation present. 10. The pulmonic valve was not well visualized. 11. The aortic root size is normal. 12. IVC Not well visulized. 13. There is no pericardial effusion. BATTERY FILLER: MERNA Wilhelm
[2018-08-21] MEDS ORDERED: NICOTINE 21MG/24HR PATCH TRANSDERM SCH (13:45)
[2018-08-21 13:54] VITALS: BP 140/80; PULSE 70; TEMP 98.1
--- NOTE | 2018-08-21 13:58 | P.DS ---
Providers Date of admission: 08/20/18 13:57 Expected date of discharge: 08/21/18 Attending physician: Geovanny Ruiz MD Consults: 08/20/18 13:57 Consult Physician Routine Consulting Provider: Gera Martins Consult Reason/Comments: acute chf Do you want consulting provider notified?: Yes Primary care physician: [facility] Course: This is a 33-year-old male with past medical history significant for bipolar disorder, schizoaffective disorder, COPD, essential hypertension, and hyperlipidemia who presented to the hospital with worsening shortness of breath and URI symptoms. Patient was evaluated and a chest x-ray showed no evidence of pneumonia with bibasilar infiltrate. Patient is known to have sleep apnea but has not used CPAP machine for the last couple of years. There was also a concern about subjective weight gain over the past couple of month. BNP was within normal range. Echocardiogram showed borderline low normal ejection fraction of 50-55%. No significant valvular abnormality. Patient was treated with bronchodilators and steroids. His symptoms improved. He was counseled extensively regarding tobacco cessation. He will be discharged home in a stable condition. He was encouraged to follow up with the sleep medicine clinic to obtain a repeat sleep study and start using the CPAP at home. He will be discharged home in a stable condition. Please refer to the electronic chart for further details about this hospitalization. Below is a list of his medical problems addressed during this hospitalization. 1. Acute COPD exacerbation 2. Acute bacterial bronchitis 3. Morbid obesity 4. Obstructive sleep apnea 5. Underlying bipolar and schizoaffective disorder 6. Tobacco abuse Patient Condition at Discharge: Fair Plan - Discharge Summary Discharge Rx Participant: No New Discharge Prescriptions: New Azithromycin [Zithromax] 250 mg PO DAILY #4 tab Nicotine 21Mg/24Hr Patch [Habitrol] 1 patch TRANSDERM DAILY #30 patch predniSONE 50 mg PO DAILY #4 tab Continue Beclomethasone Dipropionate [Qvar 40 mcg] 2 puff INHALATION RT-BID 30 Days # 3 aer.w.adap Cholecalciferol [Vitamin D3] 5,000 unit PO DAILY 30 Days #30 tab Ipratropium/Albuterol Sulfate [Combivent Respimat Inhaler] 1 puff INHALATION RT-QID 30 Days #3 mist.inhal Metoprolol Succinate (ER) [Toprol XL] 25 mg PO DAILY 30 Days #30 tab.er.24h Simvastatin [Zocor] 20 mg PO HS Lisinopril [Zestril] 20 mg PO DAILY Albuterol Inhaler [Ventolin Hfa Inhaler] 1 - 2 puff INHALATION RT-Q4H PRN PRN Reason: Shortness Of Breath Cyanocobalamin (Vitamin B-12) [Vitamin B-12] 1,000 mg PO DAILY lamoTRIgine [LaMICtal] 200 mg PO DAILY 30 Days #30 tablet Paliperidone IM [Invega Sustenna] 234 mg IM Q28D Menthol [Nice Cough Drops] 1 lozenge MUCOUS MEM Q2H PRN PRN Reason: Cough Discontinued Loratadine [Claritin] 10 mg PO DAILY Doxycycline [Vibramycin] 100 mg PO BID 10 Days #20 cap Discharge Medication List Beclomethasone Dipropionate [Qvar 40 mcg] 2 puff INHALATION RT-BID 30 Days #3 aer.w.adap 12/10/17 [Rx] Cholecalciferol [Vitamin D3] 5,000 unit PO DAILY 30 Days #30 tab 12/10/17 [Rx] Ipratropium/Albuterol Sulfate [Combivent Respimat Inhaler] 1 puff INHALATION RT- QID 30 Days #3 mist.inhal 12/10/17 [Rx] Metoprolol Succinate (ER) [Toprol XL] 25 mg PO DAILY 30 Days #30 tab.er.24h 12/24 [Rx] Albuterol Inhaler [Ventolin Hfa Inhaler] 1 - 2 puff INHALATION RT-Q4H PRN [History] Lisinopril [Zestril] 20 mg PO DAILY 02/27/18 [History] Simvastatin [Zocor] 20 mg PO HS 02/27/18 [History] Cyanocobalamin (Vitamin B-12) [Vitamin B-12] 1,000 mg PO DAILY 07/15/18 [History ] lamoTRIgine [LaMICtal] 200 mg PO DAILY 30 Days #30 tablet 07/21/18 [Rx] Menthol [Nice Cough Drops] 1 lozenge MUCOUS MEM Q2H PRN 08/20/18 [History] Paliperidone IM [Invega Sustenna] 234 mg IM Q28D 08/20/18 [History] Azithromycin [Zithromax] 250 mg PO DAILY #4 tab 08/21/18 [Rx] Nicotine 21Mg/24Hr Patch [Habitrol] 1 patch TRANSDERM DAILY #30 patch 08/21/18 [ Rx] predniSONE 50 mg PO DAILY #4 tab 08/21/18 [Rx] Follow up Appointment(s)/Referral(s): [facility] [Primary Care Provider] - 3 Days (Unable to get through. Please call to schedule appointment) Zeynep Gu MD [STAFF PHYSICIAN] - 1 Week Discharge Disposition: HOME SELF-CARE
[2018-08-21 14:38] VITALS: BMI 61.3
--- NOTE | 2018-08-21 16:52 | CONS ---
CONSULTATION Alonso Fernandez is a 33-year-old, somewhat obese gentleman with a history of smoking and alcoholism who smokes about one and a half packs a day or more and drinks alcohol on a regular basis. He came into the hospital mainly with complaints of increasing shortness of breath apparently. He weighs over 350 pounds, has difficulty breathing, and he seems to have had a recent weight gain as well. He also has a history of hypertension. After arrival, because of increasing shortness of breath, he received some breathing treatments and Lasix, and I was asked to see him to evaluate for possible heart failure. This patient does carry a diagnosis of: 1. Obesity. 2. Probable obstructive sleep apnea syndrome. 3. Smoking and COPD. 4. Hypertension. 5. History of some depression and also underlying psychiatric issues. Patient smokes more than one and a half packs daily and drinks alcohol regularly. MEDICATIONS: Medications at home include: 1. Zocor 20 mg daily. 2. Lisinopril 20 mg daily. 3. Vitamin supplements. 4. Albuterol inhaler. 5. Qvar. 6. Metoprolol succinate 25 mg daily. ALLERGIES: He has LACTOSE INTOLERANCE. PHYSICAL EXAMINATION: Blood pressure is 128/70. Pulse rate is 84 per minute, regular. HEENT: Unremarkable. Fundus was not examined by me. Neck is short and thick. I cannot assess JVD. Heart exam reveals S1, S2 with distant heart sounds. No significant murmurs. LUNGS: Bilateral scattered rhonchi. Abdomen is soft, nontender. Lower extremities reveal bilateral edema of a moderate degree, diminished pulses. CENTRAL NERVOUS SYSTEM: Grossly no focal deficits. EKG revealed a sinus mechanism, nonspecific T-wave changes. No acute findings. LABORATORY DATA: Laboratory data suggest that his D-dimer is normal, his troponins are 0.3 and 0.3, respectively, not suggestive of any myocardial injury. His BNP is normal. His thyroid functions are within normal limits. Chest x-ray shows some interstitial congestion-type pattern which is improving and some atelectasis. IMPRESSION: 1. Exacerbation of chronic obstructive pulmonary disease. 2. Probable obstructive sleep apnea syndrome. 3. Obesity. 4. Alcoholism. 5. Smoking and chronic obstructive pulmonary disease. RECOMMENDATION: This patient does not have any congestive heart failure. I would recommend an echocardiogram to assess LV function and also right ventricular size. Patient has exacerbation of COPD, which is being addressed. The echocardiogram that was performed yesterday revealed ejection fraction in the range of 50% to 55%. The right ventricle is not significantly enlarged and the PA pressures were not easily recorded, mainly because of being a technically difficult study, but there is evidence of moderate concentric LVH noted. I recommend that we continue to optimize BP control, perform a sleep study as an outpatient, optimize his pulmonary status with bronchodilators. No intervention is necessary from a cardiac standpoint, and I will see the patient as needed. Thank you very much for the consult. [id number] / IJN: [id number] /
== END 2018-08-21 15:42 | disposition home or self-care (01) ==
LOC: EC 11:37 → 3SCARD 13:57
PROVIDERS: ADMIT Family Medicine; ATTEND Family Medicine
DX: J44.1 Chronic obstructive pulmonary disease with (acute) exacerbation (principal); J44.0 Chronic obstructive pulmonary disease with (acute) lower respiratory infection; J20.9 Acute bronchitis, unspecified; I10 Essential (primary) hypertension; G47.33 Obstructive sleep apnea (adult) (pediatric); R77.8 Other specified abnormalities of plasma proteins; R79.89 Other specified abnormal findings of blood chemistry; Q86.0 Fetal alcohol syndrome (dysmorphic); E78.5 Hyperlipidemia, unspecified; G58.9 Mononeuropathy, unspecified; F90.9 Attention-deficit hyperactivity disorder, unspecified type; F25.9 Schizoaffective disorder, unspecified; F41.9 Anxiety disorder, unspecified; F31.9 Bipolar disorder, unspecified; E66.01 Morbid (severe) obesity due to excess calories; F10.20 Alcohol dependence, uncomplicated; F17.210 Nicotine dependence, cigarettes, uncomplicated; F12.90 Cannabis use, unspecified, uncomplicated; Z79.51 Long term (current) use of inhaled steroids; Z79.899 Other long term (current) drug therapy; Z68.44 Body mass index [BMI] 60.0-69.9, adult; E73.9 Lactose intolerance, unspecified; Z82.49 Family history of ischemic heart disease and other diseases of the circulatory system; Z82.0 Family history of epilepsy and other diseases of the nervous system
CPT/HCPCS: 96372 ×2; 96374; 99285; 36415; 94640 ×4; 93005; 85379; 83880; 80061; 80053; 84443; 82550; 82553; 83735; 84484 ×2; 85025; 85610; 85730; 87502; 71046 ×2; G0378 ×2; C8929; J1940; J1650 ×2; J7512 ×2; Q9950; 93306